=== PATIENT | female | born 1955 | race Caucasian/White ===

== ENCOUNTER → 2017-02-01 | Outpatient (REF) | payer MEDICARE ==
[~2017-02-01] MED LIST: /CELE20CA PO; /CLON1TA PO; /DULO30CA; /DULO30CA OR; /DULO30CA PO; /ESOM40CA PO; /METH500TA PO; ACET50TA PO; ALEV220C2 PO; AMAR1TAB PO; APPLTAB PO; ASPI81TA85 PO; ATEN50TA2 PO; ATIV0.5T3 PO; ATIV1TAB7 PO; AVEL1TAB3 PO; BABY81CH PO; BACIDCA PO; BEN1.4DI TOP; BISO5TAB54 PO; BOUDPST TOP; CALCTAB28 PO; CINN500C9 PO; CIPR500T89 PO; CLINDAMYACIN; CLINDAMYCIN PO; CLON1PA TD; CLOT10TR PO; CYMB60CA3 PO; CYMBALTA PO; DICL75TA PO; DIPH50CA PO; DULO1CAP3 PO; DULO30CA PO; FERR1TAB8 PO; FLAG500T PO; FLEX10TA2 PO; FLEXERIL PO; FURO40TA2; GABA100C PO; GABA300C2 PO; GEMF600T PO; GEMFPOW3 PO; GLIP5TAB8 PO; HYDR-3363 PO; IBUP200C PO; IRON325T3 PO; LASI40TA PO; LEVO25TA5 PO; LIDO1OIN2 TOP; LODINE PO; LORA1TAB; LORA1TAB PO; LORAZEPAM OR; LYRI150C PO; LYRI75CA PO; MACR100C43 PO; MAGN30TA2 PO; MELO7.5T7 PO; MELOPOW PO; MELOXICAM; MESA24CASA PO; METF500T PO; METF500T4 PO; METR500T10 PO; MORP15TA2 PO; MSIR30TA PO; MSM500CA PO; NEUR600T; NEUR600T OR; NEUR600T PO; NEUR800T OR; OMEG12003 PO; OMEP40CA2 PO; OSTETAB3 PO; OXYC10TA12; OXYC10TA12 OR; OXYC40TA19 OR; OXYC80TA14; OXYC80TA14 OR; OXYC80TA14 PO; PENT500C4 PO; PERC5TAB8 PO; PERC7.5T8 OR; PERCOCET PO; PRED10TA2 PO; PRIL20CA; PRIL20CA PO; ROXICET; SEROQUEL PO; SKEL800T97 PO; TIZA2TAB3 PO; TIZA4CAP3 PO; TRAM50TA2 PO; TRAZ-136 PO; TRAZ100T2 PO; VENTAER; VENTAER INH; VITA250L PO; VOLT1GEL2 TD; [UNRECOGNIZED DRUG - CODE] MT; [UNRECOGNIZED DRUG - OTHER]; [UNRECOGNIZED DRUG - OTHER]; [UNRECOGNIZED DRUG - OTHER] PO; monistat TD; roxicet PO
[2017-02-01 18:12] LABS: ALBUMIN 4.2 GM/DL (3.2-5.2); ALBUMIN/GLOBULIN RATIO 1.14 (1.00-1.93); BILIRUBIN,TOTAL 0.6 MG/DL (0.2-1.0); CALCIUM LEVEL 10.1 MG/DL (8.5-10.1); CREATININE FOR GFR 1.33 MG/DL (0.55-1.02); GLOMERULAR FILTRATION RATE 43.5 (>51); POTASSIUM SERUM 5.1 MEQ/L (3.5-5.1); TOTAL PROTEIN 7.9 GM/DL (6.4-8.2)
[2017-02-01 19:47] LABS: BASO % 0.4 % (0.0-1.0); EOS # 0.1 K/mm3 (0.0-0.50); EOS % 0.8 % (0.0-3.0); LARGE UNSTAINED CELL # 0.3 K/mm3 (0.0-0.4); LARGE UNSTAINED CELL % 2.8 % (0.0-4.0); LYMPH # 2.6 K/mm3 (1.5-4.5); LYMPH % 28.8 % (24.0-44.0); MEAN CORPUSCULAR HEMOGLOBIN 30.8 pg (27.0-33.0); MEAN CORPUSCULAR HGB CONC 33.4 g/dl (32.0-36.5); MEAN CORPUSCULAR VOLUME 92.1 fl (80.0-96.0); MONO # 0.5 K/mm3 (0.0-0.8); MONO % 5.4 % (0.0-5.0); NEUTROPHILS # 5.6 K/mm3 (1.8-7.7); NEUTROPHILS % 61.7 % (36.0-66.0); PLATELET COUNT, AUTOMATED 508 k/mm3 (150-450); RED CELL DISTRIBUTION WIDTH 13.2 % (11.5-14.5)
== END ==
LOC: M SFHCCLAY 13:09
PROVIDERS: ATTEND Family Medicine
DX: E11.9 Type 2 diabetes mellitus without complications (principal); D64.9 Anemia, unspecified; E78.5 Hyperlipidemia, unspecified; E03.9 Hypothyroidism, unspecified
CPT/HCPCS: 36415; 80053; 80061; 83036; 84443; 85025; G0463

== ENCOUNTER → 2017-06-09 | Outpatient (REF) | payer MEDICARE, OTHER ==
[2017-06-09 18:45] LABS: BASO % 0.5 % (0.0-1.0); EOS # 0.1 10^3/uL (0.0-0.50); EOS % 0.8 % (0.0-3.0); IMMATURE GRANULOCYTE % 0.2 % (0-0); LYMPH # 2.2 10^3/uL (1.5-4.5); LYMPH % 25.1 % (24.0-44.0); MEAN CORPUSCULAR HEMOGLOBIN 29.5 pg (27.0-33.0); MEAN CORPUSCULAR HGB CONC 32.4 g/dl (32.0-36.5); MEAN CORPUSCULAR VOLUME 91.1 fl (80.0-96.0); MONO # 0.6 10^3/uL (0.0-0.8); MONO % 6.7 % (0.0-5.0); NEUTROPHILS # 5.8 10^3/uL (1.8-7.7); NEUTROPHILS % 66.7 % (36.0-66.0); PLATELET COUNT, AUTOMATED 487 10^3/uL (150-450); RED CELL DISTRIBUTION WIDTH 13.4 % (11.5-14.5); WHITE BLOOD COUNT 8.7 10^3/uL (4.0-10.0)
[2017-06-09 18:50] LABS: ALBUMIN/GLOBULIN RATIO 1.18 (1.00-1.93); BILIRUBIN,TOTAL 0.3 MG/DL (0.2-1.0); CALCIUM LEVEL 9.6 MG/DL (8.8-10.2); CREATININE FOR GFR 1.32 MG/DL (0.55-1.02); FREE T4 0.92 NG/DL (0.76-1.46); GLOMERULAR FILTRATION RATE 43.7 (>45); POTASSIUM SERUM 4.1 MEQ/L (3.5-5.1); TOTAL PROTEIN 7.4 GM/DL (6.4-8.2)
== END ==
LOC: M SFHCCLAY 12:02
PROVIDERS: ATTEND Family Medicine
DX: K52.9 Noninfective gastroenteritis and colitis, unspecified (principal); E11.9 Type 2 diabetes mellitus without complications; E03.9 Hypothyroidism, unspecified

== ENCOUNTER → 2018-04-04 | Outpatient (REF) | payer MEDICARE, OTHER ==
[2018-04-04 17:03] LABS: BASO # 0.1 10^3/uL (0.0-0.2); BASO % 0.6 % (0.0-1.0); EOS # 0.1 10^3/uL (0.0-0.50); EOS % 1.4 % (0.0-3.0); HEMATOCRIT 37.4 % (36.0-47.0); HEMOGLOBIN 11.9 g/dl (12.0-15.5); IMMATURE GRANULOCYTE % 0.5 % (0-3.0); LYMPH # 1.8 10^3/uL (1.5-4.5); MEAN CORPUSCULAR HEMOGLOBIN 29.9 pg (27.0-33.0); MEAN CORPUSCULAR HGB CONC 31.8 g/dl (32.0-36.5); MONO # 0.7 10^3/uL (0.0-0.8); MONO % 8.1 % (0.0-5.0); NEUTROPHILS # 5.9 10^3/uL (1.8-7.7); NEUTROPHILS % 68.4 % (36.0-66.0); PLATELET COUNT, AUTOMATED 502 10^3/uL (150-450); RED BLOOD COUNT 3.98 10^6/uL (4.00-5.40); RED CELL DISTRIBUTION WIDTH 13.6 % (11.5-14.5); WHITE BLOOD COUNT 8.7 10^3/uL (4.0-10.0)
[2018-04-04 17:40] LABS: ESTIMATED AVERAGE GLUCOSE 146 MG/DL (60-110); HEMOGLOBIN A1c 6.7 %
[2018-04-04 17:51] LABS: ALBUMIN/GLOBULIN RATIO 1.05 (1.00-1.93); ALKALINE PHOSPHATASE 175 U/L (45-117); ALT/SGPT 79 U/L (12-78); ANION GAP 12 MEQ/L (8-16); AST/SGOT 69 U/L (7-37); BILIRUBIN,TOTAL 0.4 MG/DL (0.2-1.0); BLOOD UREA NITROGEN 25 MG/DL (7-18); CALCIUM LEVEL 9.9 MG/DL (8.8-10.2); CARBON DIOXIDE LEVEL 22 MEQ/L (21-32); CHLORIDE LEVEL 103 MEQ/L (98-107); CHOLESTEROL LEVEL 194 MG/DL (<200); CREATININE FOR GFR 1.58 MG/DL (0.55-1.30); FREE T4 0.83 NG/DL (0.76-1.46); GLOMERULAR FILTRATION RATE 35.4 (>45); GLUCOSE, FASTING 92 MG/DL (70-100); HDL CHOLESTEROL 40 MG/DL (>40); LDL CHOLESTEROL 127 MG/DL (<100); NON-HDL-C 154 MG/DL; POTASSIUM SERUM 4.7 MEQ/L (3.5-5.1); SODIUM LEVEL 137 MEQ/L (136-145); TOTAL PROTEIN 7.8 GM/DL (6.4-8.2); TRIGLYCERIDES LEVEL 137 MG/DL (<150)
== END ==
LOC: M SFHCCLAY 12:08
DX: D64.9 Anemia, unspecified (principal); E03.9 Hypothyroidism, unspecified; E78.2 Mixed hyperlipidemia; E11.9 Type 2 diabetes mellitus without complications
CPT/HCPCS: 84443

== ENCOUNTER → 2018-10-19 | Outpatient (REF) | payer MEDICARE ==
[~2018-10-19] MED LIST changes: -/CELE20CA PO; -/CLON1TA PO; -/DULO30CA; -/DULO30CA OR; -/DULO30CA PO; -/ESOM40CA PO; -/METH500TA PO; -ACET50TA PO; +CELE1CAP4 PO; +CLON-412 PO; -CLON1PA TD; +CLON1PAT TD; +CYMB1CAP5; +CYMB1CAP5 OR; +CYMB1CAP5 PO; -DULO30CA PO; +DULO30CA9 PO; +GEMF600T5 PO; +MAPA500T17 PO; +METH1TAB40 PO; +NEXI1CAP3 PO; +OCUVTA PO; +OXYC1TAB23 PO; -PERCOCET PO; +TIZA4CAP PO; -TIZA4CAP3 PO; -TRAZ-136 PO; +TRAZ-163 PO; -[UNRECOGNIZED DRUG - OTHER] PO
[2018-10-19 17:04] LABS: ALBUMIN 3.8 GM/DL (3.2-5.2); BILIRUBIN,TOTAL 0.3 MG/DL (0.2-1.0); CALCIUM LEVEL 9.2 MG/DL (8.8-10.2); CHOLESTEROL RISK RATIO 4.23 (<5); CREATININE FOR GFR 1.02 MG/DL (0.55-1.30); FREE T4 0.89 NG/DL (0.76-1.46); GLOMERULAR FILTRATION RATE 58.7 (>45); POTASSIUM SERUM 4.7 MEQ/L (3.5-5.1); THYROID STIMULATING HORMONE 2.24 uIU/ML (0.358-3.740); TOTAL PROTEIN 7.5 GM/DL (6.4-8.2)
[2018-10-19 17:08] LABS: BASO # 0.1 10^3/uL (0.0-0.2); BASO % 0.8 % (0.0-1.0); EOS # 0.1 10^3/uL (0.0-0.50); HEMATOCRIT 40.6 % (36.0-47.0); LYMPH # 2.3 10^3/uL (1.5-4.5); LYMPH % 23.8 % (24.0-44.0); MEAN CORPUSCULAR HEMOGLOBIN 29.7 pg (27.0-33.0); MEAN CORPUSCULAR VOLUME 92.7 fl (80.0-96.0); MONO # 0.5 10^3/uL (0.0-0.8); MONO % 5.1 % (0.0-5.0); NEUTROPHILS # 6.7 10^3/uL (1.8-7.7); PLATELET COUNT, AUTOMATED 468 10^3/uL (150-450); RED BLOOD COUNT 4.38 10^6/uL (4.00-5.40); WHITE BLOOD COUNT 9.7 10^3/uL (4.0-10.0)
[2018-10-19 17:14] LABS: HEMOGLOBIN A1c 8.1 %
== END ==
LOC: M SFHCCLAY 12:15
PROVIDERS: ATTEND Family Medicine
DX: J06.9 Acute upper respiratory infection, unspecified (principal); M15.9 Polyosteoarthritis, unspecified; E11.9 Type 2 diabetes mellitus without complications; E78.5 Hyperlipidemia, unspecified; E03.9 Hypothyroidism, unspecified
CPT/HCPCS: 36415; 80053; 80061; 83036; 84439; 84443; 84550; 85025; G0463

== ENCOUNTER → 2019-04-19 | Outpatient (CLI) | payer MEDICARE ==
[~2019-04-19] MED LIST changes: -DULO1CAP3 PO; +DULO1CAP6 PO; +METF-791 PO; -METF500T4 PO
[2019-04-19 13:48] LABS: CALCIUM LEVEL 9.6 MG/DL (8.8-10.2); CREATININE FOR GFR 1.12 MG/DL (0.55-1.30); GLOMERULAR FILTRATION RATE 52.5 (>45); POTASSIUM SERUM 4.5 MEQ/L (3.5-5.1)
== END ==
LOC: M LAB 12:48
PROVIDERS: ATTEND Family Medicine
DX: E11.9 Type 2 diabetes mellitus without complications (principal)

== ENCOUNTER → 2019-04-20 | Outpatient (CLI) | payer MEDICARE, OTHER ==
[~2019-04-20] MED LIST changes: +GASTROGRAFIN SOLUTION 30ML (Q9963) As Ordered ONE; +ISOVUE-370 76% 100ML VIAL (Q9967) As Ordered ONE
--- NOTE | 2019-04-20 16:29 | REP ---
REASON: Abdominal pain. COMPARISON: Multiple, the latest 11/05/2015. CONTRAST: 100 mL Isovue-370. The lung bases are clear and unchanged. The precontrast enhanced portion of the examination shows the hepatic and splenic densities to be within normal limits. There are surgical clips seen in the gallbladder fossa from previous cholecystectomy. There are no nephroliths. The contrast enhanced portion of the examination shows the liver, spleen, pancreas, adrenal glands and kidneys to be within normal limits with the abdominal aorta and paraaortic regions within normal limits. The bowel loops and the mesenteries are within normal limits. The bowel loops and their mesenteries are within normal limits. There are a few scattered colonic diverticula status quo. There is no free fluid or free air. CT PELVIS: The bowel loops and their mesenteries are within normal limits. There is no evidence of a mass or adenopathy. There is no free fluid or free air. Bone window technique throughout the examination shows the osseous structures to be stable and intact. Spinal and sacroiliac joint degenerative changes are noted status quo. IMPRESSION: No acute intraabdominal or intrapelvic disease. No significant change compared to the prior exam. Findings as described above. Electronically Signed by Patrick Webb DO 04/20/2019 04:44 P
== END ==
LOC: M RAD 11:22
PROVIDERS: ATTEND Family Medicine
DX: R10.9 Unspecified abdominal pain (principal)
CPT/HCPCS: 74178; Q9963; Q9967

== ENCOUNTER → 2019-05-26 | Outpatient (REF) | payer MEDICARE ==
[~2019-05-26] MED LIST changes: -GASTROGRAFIN SOLUTION 30ML (Q9963) As Ordered ONE; -ISOVUE-370 76% 100ML VIAL (Q9967) As Ordered ONE; -OMEP40CA2 PO; +OMEP40CA97 PO
[2019-05-26 16:45] LABS: BASO # 0.1 10^3/uL (0.0-0.2); BASO % 0.6 % (0.0-1.0); EOS # 0.1 10^3/uL (0.0-0.5); EOS % 1.2 % (0.0-3.0); HEMATOCRIT 39.9 % (36.0-47.0); HEMOGLOBIN 12.6 g/dl (12.0-15.5); LYMPH # 3.1 10^3/uL (1.5-5.0); LYMPH % 27.4 % (24.0-44.0); MEAN CORPUSCULAR HEMOGLOBIN 28.9 pg (27.0-33.0); MEAN CORPUSCULAR HGB CONC 31.6 g/dl (32.0-36.5); MEAN CORPUSCULAR VOLUME 91.5 fl (80.0-96.0); MONO # 0.7 10^3/uL (0.0-0.8); MONO % 5.9 % (0.0-5.0); NEUTROPHILS # 7.3 10^3/uL (1.5-8.5); NEUTROPHILS % 64.5 % (36.0-66.0); PLATELET COUNT, AUTOMATED 493 10^3/uL (150-450); RED BLOOD COUNT 4.36 10^6/uL (4.00-5.40); WHITE BLOOD COUNT 11.3 10^3/uL (4.0-10.0)
[2019-05-26 16:56] LABS: ALBUMIN 4.1 GM/DL (3.2-5.2); BILIRUBIN,TOTAL 0.5 MG/DL (0.2-1.0); CALCIUM LEVEL 9.9 MG/DL (8.8-10.2); CHOLESTEROL RISK RATIO 5.219 (<5); CREATININE FOR GFR 1.14 MG/DL (0.55-1.30); FREE T4 0.94 NG/DL (0.76-1.46); GLOMERULAR FILTRATION RATE 51.4 (>45); POTASSIUM SERUM 4.6 MEQ/L (3.5-5.1); THYROID STIMULATING HORMONE 4.86 uIU/ML (0.358-3.740); TOTAL PROTEIN 8.1 GM/DL (6.4-8.2)
[2019-05-26 16:58] LABS: HEMOGLOBIN A1c 8.5 %
== END ==
LOC: M SFHCCLAY 12:05
PROVIDERS: ATTEND Family Medicine
DX: E11.9 Type 2 diabetes mellitus without complications (principal); E78.5 Hyperlipidemia, unspecified; E03.9 Hypothyroidism, unspecified; M15.9 Polyosteoarthritis, unspecified
CPT/HCPCS: 36415; 80053; 80061; 83036; 84439; 84443; 85025; G0463

== ENCOUNTER → 2020-01-10 | Outpatient (REF) | payer MEDICARE ==
[~2020-01-10] MED LIST changes: -METF-791 PO; +METF-838 PO; -TRAZ-163 PO; +TRAZ-257 PO
[2020-01-11 11:42] LABS: BASO # 0.1 10^3/uL (0.0-0.2); BASO % 0.5 % (0.0-1.0); EOS # 0.1 10^3/uL (0.0-0.5); EOS % 0.8 % (0.0-3.0); HEMOGLOBIN 13.5 g/dl (12.0-15.5); LYMPH # 3.4 10^3/uL (1.5-5.0); LYMPH % 33.4 % (24.0-44.0); MEAN CORPUSCULAR HEMOGLOBIN 29.1 pg (27.0-33.0); MEAN CORPUSCULAR HGB CONC 31.4 g/dl (32.0-36.5); MEAN CORPUSCULAR VOLUME 92.7 fl (80.0-96.0); MONO # 0.6 10^3/uL (0.0-0.8); MONO % 5.6 % (0.0-5.0); NEUTROPHILS # 6.1 10^3/uL (1.5-8.5); NEUTROPHILS % 59.3 % (36.0-66.0); PLATELET COUNT, AUTOMATED 512 10^3/uL (150-450); RED BLOOD COUNT 4.64 10^6/uL (4.00-5.40); WHITE BLOOD COUNT 10.2 10^3/uL (4.0-10.0)
[2020-01-11 12:08] LABS: HEMOGLOBIN A1c 7.6 %
[2020-01-11 12:48] LABS: BILIRUBIN,TOTAL 0.4 MG/DL (0.2-1.0); CALCIUM LEVEL 10.5 MG/DL (8.8-10.2); CHOLESTEROL RISK RATIO 4.794 (<5); CREATININE FOR GFR 1.18 MG/DL (0.55-1.30); FREE T4 1.1 NG/DL (0.76-1.46); GLOMERULAR FILTRATION RATE 49.4 (>45); POTASSIUM SERUM 6.2 MEQ/L (3.5-5.1); THYROID STIMULATING HORMONE 1.93 uIU/ML (0.358-3.740); TOTAL PROTEIN 7.8 GM/DL (6.4-8.2)
== END ==
LOC: M SFHCCLAY 14:31
PROVIDERS: ATTEND Family Medicine
DX: G62.9 Polyneuropathy, unspecified (principal); E78.5 Hyperlipidemia, unspecified; E11.9 Type 2 diabetes mellitus without complications; E03.9 Hypothyroidism, unspecified

== ENCOUNTER → 2020-01-11 | Outpatient (CLI) | payer MEDICARE ==
[2020-01-11 16:24] LABS: CREATININE FOR GFR 1.28 MG/DL (0.55-1.30); POTASSIUM SERUM 4.8 MEQ/L (3.5-5.1)
== END ==
LOC: M WUC 14:48
PROVIDERS: ATTEND Family Medicine
DX: E87.5 Hyperkalemia (principal)

== ENCOUNTER → 2020-06-18 | Outpatient (REF) | payer MEDICARE ==
[2020-06-18 17:48] LABS: HEMOGLOBIN A1c 7.6 %
[2020-06-18 18:47] LABS: CREATININE, URINE 68.1 MG/DL; MALB URINE SIEMENS 13.6 MG/L; MAU/CREAT RATIO 19.9 MCG/MG (0.0-30.0)
[2020-06-18 18:51] LABS: CALCIUM LEVEL 9.5 MG/DL (8.8-10.2); CREATININE FOR GFR 1.1 MG/DL (0.55-1.30); FREE T4 0.94 NG/DL (0.76-1.46); GLOMERULAR FILTRATION RATE 53.4 (>45); POTASSIUM SERUM 4.6 MEQ/L (3.5-5.1); THYROID STIMULATING HORMONE 3.59 uIU/ML (0.358-3.740)
== END ==
LOC: M SFHCCLAY 12:00
PROVIDERS: ATTEND Family Medicine
DX: E03.9 Hypothyroidism, unspecified (principal); E11.9 Type 2 diabetes mellitus without complications

== ENCOUNTER → 2020-10-22 | Outpatient (REF) | payer MEDICARE ==
[2020-10-22 18:08] LABS: BASO # 0.1 10^3/uL (0.0-0.2); BASO % 0.6 % (0.0-1.0); EOS # 0.2 10^3/uL (0.0-0.5); EOS % 1.7 % (0.0-3.0); HEMATOCRIT 40.9 % (36.0-47.0); LYMPH # 3.2 10^3/uL (1.5-5.0); LYMPH % 31.4 % (24.0-44.0); MEAN CORPUSCULAR HEMOGLOBIN 29.3 pg (27.0-33.0); MEAN CORPUSCULAR HGB CONC 31.8 g/dl (32.0-36.5); MEAN CORPUSCULAR VOLUME 92.3 fl (80.0-96.0); MONO # 0.7 10^3/uL (0.0-0.8); MONO % 6.3 % (2.0-8.0); NEUTROPHILS # 6.2 10^3/uL (1.5-8.5); NEUTROPHILS % 59.7 % (36.0-66.0); PLATELET COUNT, AUTOMATED 508 10^3/uL (150-450); RED BLOOD COUNT 4.43 10^6/uL (4.00-5.40); WHITE BLOOD COUNT 10.3 10^3/uL (4.0-10.0)
[2020-10-22 18:29] LABS: ALBUMIN 4.4 GM/DL (3.2-5.2); ALT/SGPT 36 U/L (12-78); BILIRUBIN,TOTAL 0.4 MG/DL (0.2-1.0); BLOOD UREA NITROGEN 19 MG/DL (7-18); C REACTIVE PROTEIN QUANTITATIV 0.97 MG/DL (0.00-0.30); CALCIUM LEVEL 10.2 MG/DL (8.8-10.2); CARBON DIOXIDE LEVEL 31 MEQ/L (21-32); CHLORIDE LEVEL 102 MEQ/L (98-107); CREATININE FOR GFR 1.16 MG/DL (0.55-1.30); GLOMERULAR FILTRATION RATE 50.2 (>45); GLUCOSE, FASTING 155 MG/DL (70-100); POTASSIUM SERUM 4.8 MEQ/L (3.5-5.1); RHEUMATOID FACTOR QUANT < 10.0 IU/ML (<15.0); SODIUM LEVEL 138 MEQ/L (136-145)
[2020-10-22 18:41] LABS: ERYTHROCYTE SEDIMENTATION RATE 67 mm/hr (0-30)
[2020-10-22 20:12] LABS: HEMOGLOBIN A1c 7.5 %
[2020-10-25 00:07] LABS: ANA (HEP2) Positive (.); CARDIOLIPIN IGA ANTIBODY <9 APL U/mL (0-11); CARDIOLIPIN IGG ANTIBODY <9 GPL U/mL (0-14); CARDIOLIPIN IGM ANTIBODY 66 MPL U/mL (0-12); CYCLIC CITRULLINATED PEPTIDE 30 units (0-19); Lyme Disease IgG/IgM Antibodie <0.91 ISR (0.00-0.90); Lyme Disease IgM Ab Quantitati <0.80 index (0.00-0.79)
== END ==
LOC: M SFHCCLAY 11:46
PROVIDERS: ATTEND Family Medicine
DX: M25.50 Pain in unspecified joint (principal); E11.9 Type 2 diabetes mellitus without complications

== ENCOUNTER 2020-10-27 11:01 | Emergency (ER) | payer MEDICARE ==
[~2020-10-27] VITALS: Ht 160 cm; Wt 102.4 kg
[2020-10-27] MEDS ORDERED: HYDR-3713 PO (11:42)
[2020-10-27] MEDS ORDERED: ESOM40CA35 PO (11:42)
[2020-10-27 11:43] LABS: HEMATOCRIT 38.7 % (36.0-47.0); HEMOGLOBIN 12.4 g/dl (12.0-15.5); MEAN CORPUSCULAR HEMOGLOBIN 28.8 pg (27.0-33.0); PLATELET COUNT, AUTOMATED 446 10^3/uL (150-450); WHITE BLOOD COUNT 13.3 10^3/uL (4.0-10.0)
[2020-10-27 12:08] LABS: CALCIUM LEVEL 9.4 MG/DL (8.8-10.2); CREATININE FOR GFR 1.12 MG/DL (0.55-1.30); GLOMERULAR FILTRATION RATE 52.3 (>45); POTASSIUM SERUM 4.1 MEQ/L (3.5-5.1)
[2020-10-27] MEDS ORDERED: BACTRIM 160MG/800MG DS TAB PO ONE (13:25)
[2020-10-27] MEDS ORDERED: PERCOCET 5MG/325MG TAB PO ONE (13:25)
[2020-10-27] MEDS ORDERED: PYRI1TAB5 PO (14:04)
[2020-10-27] MEDS ORDERED: BACT800T5 PO (14:04)
[2020-10-27 14:23] VITALS: BP 119/67
--- NOTE | 2020-10-27 16:24 | ECGEPIP ---
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
== END 2020-10-27 14:25 | disposition home or self-care (01) ==
LOC: M ED 11:01
DX: N39.0 Urinary tract infection, site not specified (principal); I44.0 Atrioventricular block, first degree; E03.9 Hypothyroidism, unspecified; G89.29 Other chronic pain; M54.5 Low back pain; K50.90 Crohn's disease, unspecified, without complications; M79.7 Fibromyalgia; Z88.0 Allergy status to penicillin; Z79.899 Other long term (current) drug therapy

== ENCOUNTER 2021-01-30 11:32 | Emergency (ER) | payer MEDICARE, OTHER ==
[~2021-01-30] VITALS: Ht 162.6 cm; Wt 100.1 kg
[~2021-01-30 11:32] MED LIST changes: +BACT800T5 PO; +ESOM40CA35 PO; +HYDR-3713 PO; +OMEP40CA4 PO; -OMEP40CA97 PO; +PYRI1TAB5 PO
[2021-01-30 13:24] LABS: BASO % 0.3 % (0.0-1.0); EOS % 0.1 % (0.0-3.0); HEMOGLOBIN 12.9 g/dl (12.0-15.5); LYMPH # 1.1 10^3/uL (1.5-5.0); LYMPH % 7.4 % (24.0-44.0); MEAN CORPUSCULAR HEMOGLOBIN 28.9 pg (27.0-33.0); MEAN CORPUSCULAR HGB CONC 32.3 g/dl (32.0-36.5); MEAN CORPUSCULAR VOLUME 89.7 fl (80.0-96.0); MONO # 0.4 10^3/uL (0.0-0.8); MONO % 2.6 % (2.0-8.0); NEUTROPHILS # 13.7 10^3/uL (1.5-8.5); NEUTROPHILS % 89.1 % (36.0-66.0); PLATELET COUNT, AUTOMATED 493 10^3/uL (150-450); RED BLOOD COUNT 4.46 10^6/uL (4.00-5.40); WHITE BLOOD COUNT 15.4 10^3/uL (4.0-10.0)
[2021-01-30 13:47] LABS: ALT/SGPT 46 U/L (12-78); BILIRUBIN,DIRECT < 0.1 MG/DL (0.0-0.2); BILIRUBIN,TOTAL 0.4 MG/DL (0.2-1.0); LIPASE 172 U/L (73-393); TOTAL PROTEIN 8.7 GM/DL (6.4-8.2)
[2021-01-30] MEDS ORDERED: ISOVUE-370 76% 100ML VIAL As Ordered ONE (14:30)
[2021-01-30] MEDS ORDERED: ONDANSETRON 4MG/2ML VIAL IV ONE (14:30)
[2021-01-30] MEDS ORDERED: NS 1,000 ML IV ONE (14:30)
--- NOTE | 2021-01-30 14:51 | REP ---
INDICATION: LUQ, LLQ pain, hx of chrons disease, nausea. COMPARISON: Comparison CT study abdomen pelvis April 20, 2019.. TECHNIQUE: Helical scanning was acquired and 4 mm axial images are re-formatted. Coronal and sagittal MPR images were generated and reviewed. The contrast enhancement dose is 100 mL of intravenous Isovue 370. 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 Normal bowel gas pattern. Clips in right upper quadrant. Axial CT images demonstrate clear lung bases. There is mild diffuse fatty infiltration of the liver. No focal liver lesion is seen. Gallbladder is surgically absent. No biliary ductal dilation is observed. There are 2 small accessory splenules. Several small cysts are seen in the spleen. These are essentially unchanged. There is a granulomatous calcification inferiorly in the spleen as well. No pancreatic abnormality is seen. Normal adrenal glands are observed bilaterally. Kidneys enhance symmetrically and are morphologically intact. No calculus or hydronephrosis is seen. There is left colonic diverticulosis affecting the colon distal to the distal transverse segment. There is no CT evidence of diverticulitis. The diverticulosis is most pronounced in the sigmoid colon region. The appendix is surgically absent. There is a small cyst in the left ovary measuring 1.3 cm in diameter. This is unchanged. The uterus is surgically absent. Urinary bladder is empty but unremarkable. No abdominal wall defect or bony destructive lesion is appreciated. IMPRESSION: Moderate left colonic diverticulosis. Status post cholecystectomy, appendectomy, and hysterectomy. Fatty infiltration of the liver. No acute abdominal or pelvic abnormality. <Electronically signed by Hermilo Espinoza > 01/30/21 [id number]
[2021-01-30 15:04] LABS: HEMOGLOBIN A1c 8.2 %
[2021-01-30 15:25] VITALS: BP 132/98
[2021-01-30] MEDS ORDERED: NORCO, ANEXSIA 5/325MG TABLET (HYDROcodone/ACETAMINOPHEN) PO ONE (16:00)
--- NOTE | 2021-01-30 16:55 | ECGEPIP ---
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 Order Number: [id number] Reading MD: Erwin Lepe Measurements Intervals [place] Rate: 68 P: 50 [place]: 174 QRS: 49 QRSD: 90 T: 47 QT: 392 QTc: 416 Interpretive Statements Normal sinus rhythm Nonspecific ST-T wave abnormalities Delayed anterior R wave progression Similar to tracing done 10-27-20 Electronically Signed on 01-30-2021 16:55:28 EDT by Erwin Lepe
== END 2021-01-30 17:00 | disposition home or self-care (01) ==
LOC: M ED 11:32
DX: E86.0 Dehydration (principal); K57.30 Diverticulosis of large intestine without perforation or abscess without bleeding; R19.7 Diarrhea, unspecified; R11.0 Nausea; K50.90 Crohn's disease, unspecified, without complications; K76.0 Fatty (change of) liver, not elsewhere classified; E11.9 Type 2 diabetes mellitus without complications; K21.9 Gastro-esophageal reflux disease without esophagitis; Z87.19 Personal history of other diseases of the digestive system; Z87.440 Personal history of urinary (tract) infections; Z90.49 Acquired absence of other specified parts of digestive tract; Z90.710 Acquired absence of both cervix and uterus; Z88.0 Allergy status to penicillin; Z88.1 Allergy status to other antibiotic agents; Z79.899 Other long term (current) drug therapy
CPT/HCPCS: 36415; 74177; 80047; 80076; 81001; 83036; 83690; 85025; 87086; 93005; 96374; 99284; J2405; Q9967

== ENCOUNTER → 2021-01-31 | Outpatient (REF) | payer MEDICARE | LOC: M LAB REF 16:59 | PROVIDERS: ATTEND Physician Assistant Medical | DX: R19.7 Diarrhea, unspecified (principal) ==

== ENCOUNTER → 2021-02-05 | Outpatient (CLI) | payer MEDICARE ==
[2021-02-05 16:06] LABS: BLOOD UREA NITROGEN 19 MG/DL (7-18); CALCIUM LEVEL 9.2 MG/DL (8.8-10.2); CARBON DIOXIDE LEVEL 27 MEQ/L (21-32); CHLORIDE LEVEL 102 MEQ/L (98-107); CREATININE FOR GFR 0.96 MG/DL (0.55-1.30); GLOMERULAR FILTRATION RATE > 60.0 (>45); GLUCOSE, FASTING 182 MG/DL (70-100); POTASSIUM SERUM 4.9 MEQ/L (3.5-5.1); SODIUM LEVEL 135 MEQ/L (136-145)
== END ==
LOC: M LAB 12:16
PROVIDERS: ATTEND Family Medicine
DX: E11.9 Type 2 diabetes mellitus without complications (principal)

== ENCOUNTER 2021-04-04 19:24 | Inpatient (IN) | payer MEDICARE, OTHER ==
[~2021-04-04] VITALS: Ht 157.5 cm; Wt 120.0 kg
[2021-04-04 21:09] LABS: BASO # 0.1 10^3/uL (0.0-0.2); BASO % 0.6 % (0.0-1.0); EOS # 0.2 10^3/uL (0.0-0.5); EOS % 2.2 % (0.0-3.0); HEMATOCRIT 33.9 % (36.0-47.0); HEMOGLOBIN 10.9 g/dl (12.0-15.5); LYMPH # 2.9 10^3/uL (1.5-5.0); LYMPH % 30.2 % (24.0-44.0); MEAN CORPUSCULAR HEMOGLOBIN 28.7 pg (27.0-33.0); MEAN CORPUSCULAR HGB CONC 32.2 g/dl (32.0-36.5); MEAN CORPUSCULAR VOLUME 89.2 fl (80.0-96.0); MONO # 0.8 10^3/uL (0.0-0.8); MONO % 8.3 % (2.0-8.0); NEUTROPHILS # 5.7 10^3/uL (1.5-8.5); NEUTROPHILS % 58.5 % (36.0-66.0); PLATELET COUNT, AUTOMATED 518 10^3/uL (150-450); WHITE BLOOD COUNT 9.7 10^3/uL (4.0-10.0)
[2021-04-04 21:32] LABS: ALBUMIN 3.1 GM/DL (3.2-5.2); ALT/SGPT 44 U/L (12-78); BILIRUBIN,TOTAL 0.3 MG/DL (0.2-1.0); BLOOD UREA NITROGEN 28 MG/DL (7-18); CARBON DIOXIDE LEVEL 24 MEQ/L (21-32); CHLORIDE LEVEL 103 MEQ/L (98-107); CK-MB VALUE MASS 2.5 NG/ML (<3.6); CPK CREATINE PHOSPHOKINASE 141 U/L (26-192); CREATININE FOR GFR 1.36 MG/DL (0.55-1.30); GLOMERULAR FILTRATION RATE 41.7 (>45); GLUCOSE, FASTING 108 MG/DL (70-100); LIPASE 300 U/L (73-393); MAGNESIUM LEVEL 1.6 MG/DL (1.8-2.4); MB/CK RELATIVE INDEX 1.77 (< OR =4); POTASSIUM SERUM 3.9 MEQ/L (3.5-5.1); SODIUM LEVEL 136 MEQ/L (136-145); TROPONIN I < 0.02 NG/ML (< 0.10)
--- NOTE | 2021-04-04 21:36 | REPVR ---
PROCEDURE INFORMATION: Exam: XR Chest Exam date and time: 04/04/2021 9:10 PM Age: 66 years old Clinical indication: Shortness of breath; Additional info: Abdominal pain, and cough TECHNIQUE: Imaging protocol: XR of the chest. Views: 1 view. COMPARISON: CR Chest, 2 view PA, Lat 06/06/2014 3:33 PM FINDINGS: Lungs: Unremarkable. No consolidation. Pleural spaces: Unremarkable. No pleural effusion. No pneumothorax. Heart/Mediastinum: Unremarkable. No cardiomegaly. Bones/joints: Unremarkable. IMPRESSION: No acute findings. Electronically signed by: Hang Velasquez On 04/04/2021 21:36:17 PM
[2021-04-04] MEDS ORDERED: LACTULOSE 20 GM/30 ML SYRUP UD PO ONE (22:40)
[2021-04-04] MEDS ORDERED: NS 1,000 ML IV ONE (22:40)
[2021-04-04 22:59] LABS: ETHYL ALCOHOL (ETHANOL) 0.004 % (0.000-0.010)
[2021-04-04] MEDS ORDERED: ACETAMINOPHEN TAB 650MG DOSE (2X325MG) PO PRN (23:25)
[2021-04-04] MEDS ORDERED: DEXTROSE 50% 50 ML SYRINGE IV PRN (23:25)
[2021-04-04] MEDS ORDERED: GLUCOSE 4GM CHEW TABLET PO PRN (23:25)
[2021-04-04] MEDS ORDERED: GLUCAGON INJ 1MG VIAL SC PRN (23:25)
--- NOTE | 2021-04-04 23:27 | HPEPDOC ---
[facility] Medical History & Physical Date of Admission Apr 04, 2021 Date of Service: Apr 04, 2021 Primary Care Physician: BLAKE MENDEZ DO Attending Physician: TASIA MERRILL MD History and Physical CHIEF COMPLAINT: [abdominal pain, ams for unknown duration] HISTORY OF PRESENT ILLNESS: [This is a 66 y/o female who at the time of my exam is alert however not oriented and not able to provide any reliable history. History is obtained via the chart and ED staff. Apparently, patient was brought in by her boyfriend for evaluation of her abdominal pain of unknown duration and her confusion. Patient tells me that she is having abdominal pain, however when asked to localize the pain, patient rubs her entire abdomen and chest. Labwork performed in the ED notable to ara with cr acutely elevated to 1.3 from 1 and hyperammonemia of 90.] PAST MEDICAL HISTORY: 1. [?Crohn's disease]. 2. [?Lupus]. 3. [Fatty liver 4. HLD 5. Depression/anxiety 6. DM2]. PAST SURGICAL HISTORY: 1. [Tonsillectomy and adenoidectomy]. 2. [Cholecystectomy]. 3. [Appendectomy 4. Hysterectomy 5. B/l carpal tunnel repair SOCIAL HISTORY: Unable to obtain d/t mentation FAMILY HISTORY: Unable to obtain d/t mentation ALLERGIES: Please see below. REVIEW OF SYSTEMS: Unable to obtain accurate ros d/t current mentation. HOME MEDICATIONS: Please see below. PHYSICAL EXAMINATION: VITAL SIGNS: Please see below. GENERAL APPEARANCE: [This is a 66 y/o female who is alert but not oriented. She answers questions nonsensically. Patient does not appear to be in any distress]. HEENT: [No mass or lesion. EOMI. No scleral icterus. Nares patent. Oral mucosa moist]. CARDIOVASCULAR: [Regular rate, rhythm. No murmurs, rubs, gallops]. LUNGS: [Good air flow b/l. No wheezing, rales, rhonchi]. ABDOMEN: [Soft, tender to RUQ, RLQ and epigastrium. Most tender to epigastrium]. MUSCULOSKELETAL: [No joint deformity]. EXTREMITIES: [No pedal edema appreciated. No overlying skin changes. Pulses intact]. NEUROLOGICAL: [Speech clear but nonsensical. Alert, oriented to self only. No focal deficits]. PSYCHIATRIC: [Patient is confused]. LABORATORY DATA: See below. IMAGING: [CXR: FINDINGS: Lungs: Unremarkable. No consolidation. Pleural spaces: Unremarkable. No pleural effusion. No pneumothorax. Heart/Mediastinum: Unremarkable. No cardiomegaly. Bones/joints: Unremarkable. IMPRESSION: No acute findings. CT Abd/pelvis: FINDINGS: LUNG BASES: Minimal atelectasis and/or pulmonary parenchymal scarring. VASCULAR: Visualized cardiac size is at the upper end of normal. No abdominoaortic aneurysm or retroperitoneal hematoma. There is calcific atherosclerosis. Vascular patency is not evaluated by this exam. PERITONEAL : No free air or free fluid. GI: No hiatal hernia. The stomach is not sufficiently distended to evaluate wall thickening. No asymmetric small-bowel distention to suggest a complete obstruction. Evaluation for bowel wall and fold thickening is limited on this study, secondary to lack of any contrast. No focal mesenteric inflammation is seen. No mesenteric lymphadenopathy by size criteria. Scattered fecal material and gas within portions of the colon and rectum. There is diverticulosis but no evidence of acute diverticulitis. The appendix is not visualized. No secondary inflammation is seen at the cecal apex. HEPATOBILIARY, PANCREAS, SPLEEN: Hepatic length is 19.3 cm. The gallbladder has been removed. No pancreatic inflammation. Spleen not enlarged. There is lobular contour along the medial margin of the spleen with a 2 cm hypodense lesion noted anterosuperiorly, difficult to further characterize but not significantly changed from the prior exam. Posterior splenic calcification again noted. ADRENALS, KIDNEYS, BLADDER, RETROPERITONEAL: Adrenals within normal limits. No hydronephrosis. Mild nonspecific perinephric stranding. No renal calculi. No ureteral calculi. No calculi within the urinary bladder. Several calcifications seen within the pelvis are felt likely to represent phleboliths. Mildly distended urinary bladder. No perivesical stranding. No bladder wall thickening. PELVIC: The uterus is not visualized. Slightly tubular cystic lesion noted along the left adnexa, measuring 3.7 by 1.5 cm is unchanged from the prior study and may represent an ovarian cyst, adnexal cyst or focal dilation of the flow being to. Consider confirmation non emergently by ultrasound as clinically appropriate, if not already done. MUSCULOSKELETAL: Small fat containing umbilical hernia. Small fat containing inguinal hernias. Degenerative changes of the spine and pelvis noted. Mild superior endplate compression fracture deformity at T12 is similar to the prior exam. IMPRESSION: No free-air, free-fluid or focal mesenteric inflammation. Nonspecific gastrointestinal findings.] MICROBIOLOGY: Please see below. ASSESSMENT: [66 y/o female with a pmh of fatty liver, dm2, depression/anxiety brought to ED by significant other for evaluation of abdominal pain, altered mental status. As of my exam, patient is acutely altered and unable to provide history. Patient is having active visual and auditory hallucinations as well as nonsensical speech and thought pattern. Labwork in ED notable for hyperammonemia of 90, and this seems to be the first incidence of hepatic encephalopathy per our chart. Patient is complaining of abdominal pain, however a chart review seems to show a history of chronic pain and several complaints of abdominal pain in the past, so this may be chronic for her. There is a questionable history of crohn's disease in the chart as it seems that patient was on mesalamine at one point, however i cannot find good documentation of this. ]. . PLAN: 1. 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 Will order procalcitonin, esr, crp - we should consider polypharmacy as causation at this time, as patients med list includes ativan, oxycodone, tramadol and pregabalin among others - will hold these home meds at this time - will begin lactulose qid and trend ammonia - continuous pulse ox and neurochecks for now d/t encephalopathy - admit to pcu for tx 2. ARA - most likely pre renal d/t reported abdominal pain and ams - ct abd pelvis not indicative of obstruction - ua and urine electrolytes ordered - will give ivf overnight - repeat kidney function in the am 3.DM2 - sliding scale insulin - hypoglycemic protocol 4. Essential HTN - continue atenolol 5. GERD - continue famotidine, protonix 6. Depression/anxiety - continue celexa, duloxetine - holding ativan d/t ams 7. HLD - continue gemfibrozil 8. Hypothyroidism - continue synthroid 9. Chronic pain - holding opioids at this time d/t ams 10. Class 3 obesity DVT prophylaxis - lovenox]. Vital Signs Vital Signs Date Time Temp Pulse Resp B/P (MAP) Pulse Ox O2 Delivery O2 Flow Rate FiO2 04/04/21 23:09 64 04/04/21 23:01 17 103/57 (72) 100 Room Air 04/04/21 19:24 98.0 Laboratory Data Labs 24H Laboratory Tests 2 04/04/21 20:44: Immature Granulocyte % (Auto) 0.2, Neutrophils (%) (Auto) 58.5, Lymphocytes (%) (Auto) 30.2, Monocytes (%) (Auto) 8.3H, Eosinophils (%) (Auto) 2.2, Basophils (%) (Auto) 0.6, Neutrophils # (Auto) 5.7, Lymphocytes # (Auto) 2.9, Monocytes # (Auto) 0.8, Eosinophils # (Auto) 0.2, Basophils # (Auto) 0.1, Nucleated Red Blood Cells % (auto) 0.0, Anion Gap 9, Glomerular Filtration Rate 41.7L, Lactic Acid Level 1.1, Calcium Level 9.0, Magnesium Level 1.6L, Total Bilirubin 0.3, Aspartate Amino Transf (AST/SGOT) 16, Alanine Aminotransferase (ALT/SGPT) 44, Alkaline Phosphatase 174H, Ammonia 90H, Total Creatine Kinase 141, Creatine Kinase MB 2.5, Creatine Kinase MB Relative Index 1.77, Troponin I < 0.02, Total Protein 7.0, Albumin 3.1L, Albumin/Globulin Ratio 0.8L, Lipase 300, Ethyl Alcoho l Level 0.004 CBC/BMP Laboratory Tests 04/04/21 20:44 Home Medications Scheduled Atenolol (Atenolol) 50 Mg Tablet, 50 MG PO DAILY Cholecalciferol (Vitamin D3) (Vitamin D3) 50 Mcg Capsule, 50 MCG PO DAILY Cider Vinegar (Apple Cider Vinegar) 500 Mg Tablet, 500 MG PO DAILY Citalopram Hydrobromide (Citalopram HBr) 20 Mg Tablet, 20 MG PO DAILY Cyanocobalamin (Vitamin B-12) (Vitamin B-12) 500 Mcg Tablet, 500 MCG PO DAILY Duloxetine Hcl (Duloxetine HCl) 60 Mg Capsule.dr, 60 MG PO BID Esomeprazole Magnesium (Nexium) 40 Mg Capsule.dr, 40 MG PO DAILY Famotidine (Famotidine) 20 Mg Tablet, 20 MG PO BID Gemfibrozil (Lopid) 600 Mg Tablet, 600 MG PO BID Glimepiride (Amaryl) 1 Mg Tablet, 1 MG PO BID Levothyroxine Sodium (Synthroid) 25 Mcg Tablet, 25 MCG PO DAILY Magnesium Oxide (Magnesium Oxide) 400 Mg Tablet, 400 MG PO DAILY Metformin HCl (Metformin HCl) 500 Mg Tablet, 500 MG PO BIDWM Multivitamin with Iron (Hair Vitamin) 1 Each Tablet, 1 TAB PO DAILY Multivitamins (Thera M Plus Tablet) 1 Each Tablet, 1 TAB PO DAILY Pregabalin (Lyrica) 150 Mg Cap, 150 MG PO BID Pregabalin (Pregabalin) 50 Mg Capsule, 50 MG PO DAILY TAKES MIDDAY Scheduled PRN Cyclobenzaprine HCl (Cyclobenzaprine HCl) 10 Mg Tablet, 10 MG PO DAILY PRN for MUSCLE SPASMS Hydrocodone/Acetaminophen (Hydrocodone-Acetamin 5-325 mg) 1 Each Tablet, 1 TAB PO Q4H PRN for MODERATE PAIN (PS 5-7) Lidocaine (Lidocaine) 120 Gm Oint...g., 1 DOSE EXT QID PRN for NECK PAIN APPLIES TO NECK Lorazepam (Ativan) 1 Mg Tab, 1 MG PO TID PRN for ANXIETY Oxycodone HCl (Oxycodone HCl) 10 Mg Tablet, 10 MG PO TID PRN for SEVERE PAIN (PS 8-10) Tramadol HCl (Tramadol HCl) 50 Mg Tab, 50 MG PO QID PRN for MODERATE PAIN (PS 5- 7) Miscellaneous Medications [Patient Comment] MED REC COMPLETED VIA PREVIOUS CLINIC VISIT AND EXTERNAL MED HISTORY Allergies Coded Allergies: Cephalosporins (Verified Allergy, Intermediate, RASH, 10/27/20) Penicillins (Verified Allergy, Intermediate, RASH, 10/27/20) A-FIB/CHADSVASC A-FIB History Current/History of A-Fib/PAF?: No SAMARIA SAENZ Apr 04, 2021 23:27 TASIA MERRILL MD Apr 07, 2021 03:28
[2021-04-04] MEDS ORDERED: LR 1,000 ML IV SCH (23:35)
[2021-04-04 23:57] LABS: FREE T4 0.96 NG/DL (0.76-1.46)
[2021-04-05 00:18] LABS: RSV AMPLIFICATION NEGATIVE (NEGATIVE)
[2021-04-05] MEDS: HumaLOG INSULIN (NovoLOG) PER UNIT SC SCH ×5 (00:22→21:00)
[2021-04-05 00:52] LABS: INR 1.03; PROTHROMBIN TIME 13.9 SECONDS (12.7-14.5)
[2021-04-05 00:53] LABS: PARTIAL THROMBOPLASTIN TIME 37.8 SECONDS (25.9-37.0)
[2021-04-05 01:12] LABS: C REACTIVE PROTEIN QUANTITATIV 2.75 MG/DL (0.00-0.30); PERCENT SATURATION 9.4 % (13.2-45.0)
[2021-04-05 01:33] LABS: ERYTHROCYTE SEDIMENTATION RATE 65 mm/hr (0-30)
[2021-04-05] MEDS ORDERED: OXYC10TA12 PO (01:53)
[2021-04-05] MEDS ORDERED: HAIRTAB PO (01:53)
[2021-04-05] MEDS ORDERED: LOPI600T PO (01:53)
[2021-04-05] MEDS ORDERED: VITA-172 PO (01:53)
[2021-04-05] MEDS ORDERED: VITA200020 PO (01:53)
[2021-04-05] MEDS ORDERED: SYNT25TA PO (01:53)
[2021-04-05] MEDS ORDERED: DULO1CAP6 PO (01:53)
[2021-04-05] MEDS ORDERED: FAMO20TA PO (01:53)
[2021-04-05] MEDS ORDERED: NEXI40CA PO (01:53)
[2021-04-05] MEDS ORDERED: MAGN400T2 PO (01:53)
[2021-04-05] MEDS ORDERED: CYCL10TA5 PO (01:53)
[2021-04-05] MEDS ORDERED: CITA20TA6 PO (01:53)
[2021-04-05] MEDS ORDERED: PREG50CA2 PO (01:53)
[2021-04-05] MEDS ORDERED: HYDR-4571 PO (01:53)
[2021-04-05] MEDS ORDERED: AMAR1TAB PO (01:53)
[2021-04-05] MEDS ORDERED: LIDO5OIN19 EXT (01:53)
[2021-04-05] MEDS ORDERED: METF-839 PO (01:53)
[2021-04-05] MEDS ORDERED: VITMTA PO (01:53)
[2021-04-05] MEDS ORDERED: APPLTAB2 PO (01:53)
[2021-04-05] MEDS ORDERED: ATEN50TA2 PO (01:53)
[2021-04-05] MEDS ORDERED: PATIENT COMMENT (01:54)
[2021-04-05] MEDS ORDERED: HOME MED LIST COMPLETE! XX SCH (01:55)
[2021-04-05] MEDS ORDERED: LIDOCAINE 5% OINT 30GM TUBE EXT PRN (02:55)
[2021-04-05 03:23] VITALS: BP 141/64
--- NOTE | 2021-04-05 03:24 | REPVR ---
PROCEDURE INFORMATION: Exam: CT Abdomen And Pelvis Without Contrast Exam date and time: 04/04/2021 8:46 PM Age: 66 years old Clinical indication: Abdominal pain; Epigastric; Additional info: Epigastric abdominal tenderness and nausea TECHNIQUE: Imaging protocol: Computed tomography of the abdomen and pelvis without contrast. Radiation optimization: All CT scans at this facility use at least one of these dose optimization techniques: automated exposure control; mA and/or kV adjustment per patient size (includes targeted exams where dose is matched to clinical indication); or iterative reconstruction. COMPARISON: CT ABD/PEL W/IV CONTRAST ONLY 01/30/2021 2:33 PM. Prior report has not been made available for review at the time of this emergent interpretation, however was requested. Study limitations: Evaluation for mass, inflammatory change, including bowel wall/fold thickening, viscera, and vasculature, is suboptimal without contrast. Evaluation is slightly compromised by artifact from positioning of the patient's arms alongside the body wall and motion haziness. FINDINGS: LUNG BASES: Minimal atelectasis and/or pulmonary parenchymal scarring. VASCULAR: Visualized cardiac size is at the upper end of normal. No abdominoaortic aneurysm or retroperitoneal hematoma. There is calcific atherosclerosis. Vascular patency is not evaluated by this exam. PERITONEAL : No free air or free fluid. GI: No hiatal hernia. The stomach is not sufficiently distended to evaluate wall thickening. No asymmetric small-bowel distention to suggest a complete obstruction. Evaluation for bowel wall and fold thickening is limited on this study, secondary to lack of any contrast. No focal mesenteric inflammation is seen. No mesenteric lymphadenopathy by size criteria. Scattered fecal material and gas within portions of the colon and rectum. There is diverticulosis but no evidence of acute diverticulitis. The appendix is not visualized. No secondary inflammation is seen at the cecal apex. HEPATOBILIARY, PANCREAS, SPLEEN: Hepatic length is 19.3 cm. The gallbladder has been removed. No pancreatic inflammation. Spleen not enlarged. There is lobular contour along the medial margin of the spleen with a 2 cm hypodense lesion noted anterosuperiorly, difficult to further characterize but not significantly changed from the prior exam. Posterior splenic calcification again noted. ADRENALS, KIDNEYS, BLADDER, RETROPERITONEAL: Adrenals within normal limits. No hydronephrosis. Mild nonspecific perinephric stranding. No renal calculi. No ureteral calculi. No calculi within the urinary bladder. Several calcifications seen within the pelvis are felt likely to represent phleboliths. Mildly distended urinary bladder. No perivesical stranding. No bladder wall thickening. PELVIC: The uterus is not visualized. Slightly tubular cystic lesion noted along the left adnexa, measuring 3.7 by 1.5 cm is unchanged from the prior study and may represent an ovarian cyst, adnexal cyst or focal dilation of the flow being to. Consider confirmation non emergently by ultrasound as clinically appropriate, if not already done. MUSCULOSKELETAL: Small fat containing umbilical hernia. Small fat containing inguinal hernias. Degenerative changes of the spine and pelvis noted. Mild superior endplate compression fracture deformity at T12 is similar to the prior exam. IMPRESSION: No free-air, free-fluid or focal mesenteric inflammation. Nonspecific gastrointestinal findings. Other findings and limitations discussed above. Electronically signed by: Carmelo Couch On 04/05/2021 03:23:42 AM
[2021-04-05 04:00] VITALS: BP 136/71; O2SAT 92
[2021-04-05] MEDS: LEVOTHYROXINE 25MCG TABLET (0.025MG) PO SCH (05:14)
--- NOTE | 2021-04-05 05:20 | ECGEPIP ---
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
[2021-04-05] MEDS ORDERED: LACTULOSE 20 GM/30 ML SYRUP UD PO SCH (06:00)
[2021-04-05 06:13] LABS: HEMOGLOBIN 10.9 g/dl (12.0-15.5); MEAN CORPUSCULAR HEMOGLOBIN 28.4 pg (27.0-33.0); MEAN CORPUSCULAR HGB CONC 32.1 g/dl (32.0-36.5); MEAN CORPUSCULAR VOLUME 88.5 fl (80.0-96.0); PLATELET COUNT, AUTOMATED 461 10^3/uL (150-450); RED BLOOD COUNT 3.84 10^6/uL (4.00-5.40)
[2021-04-05 06:36] LABS: ALBUMIN 2.9 GM/DL (3.2-5.2); BILIRUBIN,TOTAL 0.3 MG/DL (0.2-1.0); CALCIUM LEVEL 8.6 MG/DL (8.8-10.2); CREATININE FOR GFR 1.08 MG/DL (0.55-1.30); GLOMERULAR FILTRATION RATE 54.4 (>45); MAGNESIUM LEVEL 1.6 MG/DL (1.8-2.4); POTASSIUM SERUM 3.9 MEQ/L (3.5-5.1); TOTAL PROTEIN 6.5 GM/DL (6.4-8.2)
[2021-04-05 08:00] VITALS: BP 134/61
[2021-04-05] MEDS: MAGNESIUM OXIDE 400MG TAB (MAG-OX) PO SCH (08:24)
[2021-04-05] MEDS: CitaloPRAM (CeleXA) 20 MG TAB PO SCH (08:24)
[2021-04-05] MEDS: MULTIVITAMINS/MINERALS THERAP 1 TAB PO SCH (08:30)
[2021-04-05] MEDS: DULoxetine 30MG CAPSULE (CYMBALTA) PO SCH ×2 (08:30→21:39)
[2021-04-05] MEDS: PANTOPRAZOLE 40MG TAB (PROTONIX) PO SCH (08:30)
[2021-04-05] MEDS: FAMOTIDINE 20 MG TAB PO SCH ×2 (08:30→21:39)
[2021-04-05] MEDS: atenoloL 50 MG TAB PO SCH (08:30)
[2021-04-05] MEDS: ENOXAPARIN 30MG/0.3ML SYRINGE (J1650 PER 10MG) SC SCH (08:30)
[2021-04-05] MEDS ORDERED: MAG SULF 1GM/100ML (MAG RUN) 1 GM in IV 1 EA IV ONE (10:30)
[2021-04-05] MEDS: PREGABALIN 75 MG CAP(LYRICA) PO SCH ×2 (11:30→21:39)
[2021-04-05] MEDS: CYANOCOBALAMIN 500 MCG TAB PO SCH (11:31)
[2021-04-05 11:52] VITALS: BP 132/63
[2021-04-05] MEDS: NORCO, ANEXSIA 5/325MG TABLET (HYDROcodone/ACETAMINOPHEN) PO PRN ×2 (12:00→21:38)
--- NOTE | 2021-04-05 12:24 | IPNPDOC ---
Text Note Date of Service The patient was seen on 04/05/21. NOTE SUBJECTIVE: -No acute issues overnight -This AM is alert, awake, oriented but does need frequent redirection -Having massive diarrhea this AM while on lactulose, will de-escalate VITAL SIGNS: Please see below. GENERAL APPEARANCE: NAD, AOx3 now HEENT: NCAT, EOMI, MMM CARDIOVASCULAR: Regular rate, rhythm. No murmurs, rubs, gallops. LUNGS: Good air flow b/l. No wheezing, rales, rhonchi ABDOMEN: Soft, tender to RUQ, RLQ and epigastrium. Most tender to epigastrium EXTREMITIES: No pedal edema appreciated. No overlying skin changes. Pulses intact NEUROLOGICAL: Speech clear but nonsensical. Alert, oriented to self only. No focal deficits PSYCHIATRIC: AOx3 LABORATORY DATA: Reviewed WBC 8 Hgb 10.9 Platelets 461 ESR 65 na 141 K 3.9 ammonia 56 Mag 1.6 (repleted) Cr 1.08 IMAGING: CXR: FINDINGS: Lungs: Unremarkable. No consolidation. Pleural spaces: Unremarkable. No pleural effusion. No pneumothorax. Heart/Mediastinum: Unremarkable. No cardiomegaly. Bones/joints: Unremarkable. IMPRESSION: No acute findings. CT Abd/pelvis: LUNG BASES: Minimal atelectasis and/or pulmonary parenchymal scarring. VASCULAR: Visualized cardiac size is at the upper end of normal. No abdominoaortic aneurysm or retroperitoneal hematoma. There is calcific atherosclerosis. Vascular patency is not evaluated by this exam. PERITONEAL : No free air or free fluid. GI: No hiatal hernia. The stomach is not sufficiently distended to evaluate wall thickening. No asymmetric small-bowel distention to suggest a complete obstruction. Evaluation for bowel wall and fold thickening is limited on this study, secondary to lack of any contrast. No focal mesenteric inflammation is seen. No mesenteric lymphadenopathy by size criteria. Scattered fecal material and gas within portions of the colon and rectum. There is diverticulosis but no evidence of acute diverticulitis. The appendix is not visualized. No secondary inflammation is seen at the cecal apex. HEPATOBILIARY, PANCREAS, SPLEEN: Hepatic length is 19.3 cm. The gallbladder has been removed. No pancreatic inflammation. Spleen not enlarged. There is lobular contour along the medial margin of the spleen with a 2 cm hypodense lesion noted anterosuperiorly, difficult to further characterize but not significantly changed from the prior exam. Posterior splenic calcification again noted. ADRENALS, KIDNEYS, BLADDER, RETROPERITONEAL: Adrenals within normal limits. No hydronephrosis. Mild nonspecific perinephric stranding. No renal calculi. No ureteral calculi. No calculi within the urinary bladder. Several calcifications seen within the pelvis are felt likely to represent phleboliths. Mildly distended urinary bladder. No perivesical stranding. No bladder wall thickening. PELVIC: The uterus is not visualized. Slightly tubular cystic lesion noted along the left adnexa, measuring 3.7 by 1.5 cm is unchanged from the prior study and may represent an ovarian cyst, adnexal cyst or focal dilation of the flow being to. Consider confirmation non emergently by ultrasound as clinically appropriate, if not already done. MUSCULOSKELETAL: Small fat containing umbilical hernia. Small fat containing inguinal hernias. Degenerative changes of the spine and pelvis noted. Mild superior endplate compression fracture deformity at T12 is similar to the prior exam. IMPRESSION: No free-air, free-fluid or focal mesenteric inflammation. Nonspecific gastrointestinal findings. MICROBIOLOGY: Please see below. ASSESSMENT: 66 y/o W with a history of fatty liver, dm2, depression/anxiety brought to ED by significant other for evaluation of abdominal pain, altered mental status and admitted for hepatic encephalopathy i/s/o hyperammonemia. . PLAN: 1. Hepatic encephalopathy: Likely 2/2 to CHAMBERS - MELD score is 10, child newby classification calculated at 7 points or Class B - as we are unable to obtain reliable hx - ammonia acutely elevated to 90 - etiology of exacerbation of liver disease unclear at this time - infection seems unlikely as patient has no sirs criteria, leukocytosis. - we should consider polypharmacy as causation at this time, as patients med list includes ativan, oxycodone, tramadol and pregabalin among others - continue lactulose as daily 2. ARA: likely pre renal, resolved with hydration - ct abd pelvis not indicative of obstruction - daily BMP 3.DM2 - sliding scale insulin - hypoglycemic protocol 4. HTN - continue atenolol 5. GERD - continue famotidine, protonix 6. Depression/anxiety - continue celexa, duloxetine - resume ativan at daily PRN, not TIDP 7. HLD - continue gemfibrozil 8. Hypothyroidism - continue synthroid 9. Chronic pain - reduece norco to Q8HP, continue tramadol, reduce lyrica to 100 BID 10. Crohn's - With ongoing diarrhea i/s/o lactulose, will monitor after de-escalation - ESR is elevated, nothing notable on CT A/P though this was not a contrast enhanced study, will monitor ESR DVT prophylaxis - lovenox VS,Fishbone, I+O VS, Fishbone, I+O Laboratory Tests 04/04/21 20:44 04/05/21 05:35 Vital Signs Date Time Temp Pulse Resp B/P (MAP) Pulse Ox O2 Delivery O2 Flow Rate FiO2 04/05/21 08:30 63 134/61 04/05/21 08:00 98.0 18 96 Room Air I&O- Last 24 Hours up to 6 AM 04/05/21 06:00 Intake Total 1465 ml Balance 1465 ml SHIVANI SAMANIEGO MD Apr 05, 2021 10:20
[2021-04-05 16:00] VITALS: BP 101/49
[2021-04-05] MEDS: traMADol 50 MG TAB PO PRN (18:41)
[2021-04-05] MEDS ORDERED: ONDANSETRON 4MG/2ML VIAL IV PRN (19:40)
[2021-04-05 20:00] VITALS: BP 151/67
[2021-04-05] MEDS: NYSTATIN 100,000 UNITS/GM TOPICAL PWD 15 GM TOP SCH (21:00)
[2021-04-05] MEDS: ONDANSETRON 4 MG ORAL DISINTEGRATING TAB SL PRN (21:39)
[2021-04-05] MEDS: LORazepam 1 MG TAB PO PRN (21:39)
--- NOTE | 2021-04-05 22:09 | REPVR ---
PROCEDURE INFORMATION: Exam: XR Left Foot Exam date and time: 04/05/2021 6:53 PM Age: 66 years old Clinical indication: Pain; Foot; Left; Additional info: Swelling/pain. TECHNIQUE: Imaging protocol: XR Left foot. Views: 3 or more views. COMPARISON: CR BOTH KNEES STANDING AP 06/06/2014 3:33 PM FINDINGS: Bones/joints: Transverse fracture of the proximal aspect of the proximal phalanx of the 5th toe with slight displacement and mild dorsal and lateral angulation of the distal fragment. Soft tissues: Within normal limits. IMPRESSION: Fracture of the proximal aspect of the proximal phalanx of the 5th toe with slight displacement and mild dorsal and lateral angulation of the distal fragment. Electronically signed by: Lex Gueavra On 04/05/2021 22:09:28 PM
[2021-04-06] VITALS: BP 111/62
[2021-04-06 04:00] VITALS: BP 152/67
[2021-04-06] MEDS: LEVOTHYROXINE 25MCG TABLET (0.025MG) PO SCH (05:33)
[2021-04-06] MEDS: NORCO, ANEXSIA 5/325MG TABLET (HYDROcodone/ACETAMINOPHEN) PO PRN ×3 (05:33→22:07)
[2021-04-06 05:52] LABS: HEMOGLOBIN 10.4 g/dl (12.0-15.5); MEAN CORPUSCULAR HEMOGLOBIN 28.4 pg (27.0-33.0); MEAN CORPUSCULAR HGB CONC 31.5 g/dl (32.0-36.5); MEAN CORPUSCULAR VOLUME 90.2 fl (80.0-96.0); PLATELET COUNT, AUTOMATED 459 10^3/uL (150-450); RED BLOOD COUNT 3.66 10^6/uL (4.00-5.40); WHITE BLOOD COUNT 8.4 10^3/uL (4.0-10.0)
[2021-04-06 06:20] LABS: ALBUMIN 2.8 GM/DL (3.2-5.2); ALT/SGPT 31 U/L (12-78); BILIRUBIN,TOTAL 0.2 MG/DL (0.2-1.0); BLOOD UREA NITROGEN 16 MG/DL (7-18); CALCIUM LEVEL 8.7 MG/DL (8.8-10.2); CARBON DIOXIDE LEVEL 28 MEQ/L (21-32); CHLORIDE LEVEL 109 MEQ/L (98-107); GLOMERULAR FILTRATION RATE > 60.0 (>45); GLUCOSE, FASTING 89 MG/DL (70-100); MAGNESIUM LEVEL 1.8 MG/DL (1.8-2.4); POTASSIUM SERUM 3.4 MEQ/L (3.5-5.1); SODIUM LEVEL 143 MEQ/L (136-145); TOTAL PROTEIN 6.2 GM/DL (6.4-8.2)
[2021-04-06] MEDS: ENOXAPARIN 30MG/0.3ML SYRINGE (J1650 PER 10MG) SC SCH (09:34)
[2021-04-06] MEDS: CitaloPRAM (CeleXA) 20 MG TAB PO SCH (09:35)
[2021-04-06] MEDS: FAMOTIDINE 20 MG TAB PO SCH ×2 (09:35→22:05)
[2021-04-06] MEDS: LACTULOSE 20 GM/30 ML SYRUP UD PO SCH (09:35)
[2021-04-06] MEDS: PREGABALIN 75 MG CAP(LYRICA) PO SCH ×2 (09:35→22:04)
[2021-04-06] MEDS: DULoxetine 30MG CAPSULE (CYMBALTA) PO SCH ×2 (09:35→22:04)
[2021-04-06] MEDS: CYANOCOBALAMIN 500 MCG TAB PO SCH (09:35)
[2021-04-06] MEDS: atenoloL 50 MG TAB PO SCH (09:42)
[2021-04-06] MEDS: PANTOPRAZOLE 40MG TAB (PROTONIX) PO SCH (09:43)
[2021-04-06] MEDS: MULTIVITAMINS/MINERALS THERAP 1 TAB PO SCH (09:43)
[2021-04-06] MEDS: MAGNESIUM OXIDE 400MG TAB (MAG-OX) PO SCH (09:43)
--- NOTE | 2021-04-06 11:08 | IPNPDOC ---
Text Note Date of Service The patient was seen on 04/06/21. NOTE SUBJECTIVE: -No acute issues overnight -This AM is alert, awake, oriented but does need frequent redirection about the recent reduction of pain meds and how they likely played a role in her encephalopathy and frequent falls -L ankle and foot swelling with bruising, discussed that she has a fx noted on XR and see refuse ortho eval citing cost of medical care and consultations. For now she feels no pain and is walking on the foot without trouble so declined consultation. VITAL SIGNS: Please see below. GENERAL APPEARANCE: NAD, AOx3 now HEENT: NCAT, EOMI, MMM CARDIOVASCULAR: Regular rate, rhythm. No murmurs, rubs, gallops. LUNGS: Good air flow b/l. No wheezing, rales, rhonchi ABDOMEN: Soft, tender to RUQ, RLQ and epigastrium. Most tender to epigastrium EXTREMITIES: No pedal edema appreciated. Mildly swollen L foot, resolving bruising. Pulses intact NEUROLOGICAL: Speech clear but nonsensical. Alert, oriented to self only. No focal deficits PSYCHIATRIC: AOx3 LABORATORY DATA: Reviewed IMAGING: CXR: FINDINGS: Lungs: Unremarkable. No consolidation. Pleural spaces: Unremarkable. No pleural effusion. No pneumothorax. Heart/Mediastinum: Unremarkable. No cardiomegaly. Bones/joints: Unremarkable. IMPRESSION: No acute findings. CT Abd/pelvis: LUNG BASES: Minimal atelectasis and/or pulmonary parenchymal scarring. VASCULAR: Visualized cardiac size is at the upper end of normal. No abdominoaortic aneurysm or retroperitoneal hematoma. There is calcific atherosclerosis. Vascular patency is not evaluated by this exam. PERITONEAL : No free air or free fluid. GI: No hiatal hernia. The stomach is not sufficiently distended to evaluate wall thickening. No asymmetric small-bowel distention to suggest a complete obstruction. Evaluation for bowel wall and fold thickening is limited on this study, secondary to lack of any contrast. No focal mesenteric inflammation is seen. No mesenteric lymphadenopathy by size criteria. Scattered fecal material and gas within portions of the colon and rectum. There is diverticulosis but no evidence of acute diverticulitis. The appendix is not visualized. No secondary inflammation is seen at the cecal apex. HEPATOBILIARY, PANCREAS, SPLEEN: Hepatic length is 19.3 cm. The gallbladder has been removed. No pancreatic inflammation. Spleen not enlarged. There is lobular contour along the medial margin of the spleen with a 2 cm hypodense lesion noted anterosuperiorly, difficult to further characterize but not significantly changed from the prior exam. Posterior splenic calcification again noted. ADRENALS, KIDNEYS, BLADDER, RETROPERITONEAL: Adrenals within normal limits. No hydronephrosis. Mild nonspecific perinephric stranding. No renal calculi. No ureteral calculi. No calculi within the urinary bladder. Several calcifications seen within the pelvis are felt likely to represent phleboliths. Mildly distended urinary bladder. No perivesical stranding. No bladder wall thickening. PELVIC: The uterus is not visualized. Slightly tubular cystic lesion noted along the left adnexa, measuring 3.7 by 1.5 cm is unchanged from the prior study and may represent an ovarian cyst, adnexal cyst or focal dilation of the flow being to. Consider confirmation non emergently by ultrasound as clinically appropriate, if not already done. MUSCULOSKELETAL: Small fat containing umbilical hernia. Small fat containing inguinal hernias. Degenerative changes of the spine and pelvis noted. Mild superior endplate compression fracture deformity at T12 is similar to the prior exam. IMPRESSION: No free-air, free-fluid or focal mesenteric inflammation. Nonspecific gastrointestinal findings. 18 L Complete Foot XR Bones/joints: Transverse fracture of the proximal aspect of the proximal phalanx of the 5th toe with slight displacement and mild dorsal and lateral angulation of the distal fragment. Soft tissues: Within normal limits. IMPRESSION: Fracture of the proximal aspect of the proximal phalanx of the 5th toe with slight displacement and mild dorsal and lateral angulation of the distal fragment. MICROBIOLOGY: Please see below. ASSESSMENT: 66 y/o W with a history of fatty liver, dm2, depression/anxiety brought to ED by significant other for evaluation of abdominal pain, altered mental status and admitted for hepatic encephalopathy i/s/o hyperammonemia. PLAN: 1. Hepatic encephalopathy: Likely 2/2 to CHAMBERS i/s/o narcotic therapies and likely poor clearance - ammonia was acutely elevated to 90, now downtrended - infection seems unlikely as patient has no sirs criteria, leukocytosis. - Likely 2/2 polypharmacy as causation at this time, as patients med list includes ativan, oxycodone, tramadol and pregabalin among others - continue lactulose as daily 2. ARA: likely pre renal, resolved with hydration - ct abd pelvis not indicative of obstruction - daily BMP 3.DM2 - sliding scale insulin - hypoglycemic protocol 4. HTN - continue atenolol 5. GERD - continue famotidine, protonix 6. Depression/anxiety - continue celexa, duloxetine - resume ativan at daily PRN, not TIDP 7. HLD - continue gemfibrozil 8. Hypothyroidism - continue synthroid 9. Chronic pain - Continue reduced norco to Q8HP, continue tramadol, reduce lyrica to 100 BID 10. Crohn's - With ongoing diarrhea i/s/o lactulose, will monitor after de-escalation - ESR is elevated, nothing notable on CT A/P though this was not a contrast enhanced study, will monitor ESR 11. L 5th toe fx: - ortho consulted - continue pain management as noted above 12. Frequent falls: i/s/o recent ecencephalopathy and polypharmacy - PT/OT ordered - Ongoing med optimization to address polypharmacy DVT prophylaxis - lovenox VS,Fishbone, I+O VS, Fishbone, I+O Laboratory Tests 04/06/21 05:21 Vital Signs Date Time Temp Pulse Resp B/P (MAP) Pulse Ox O2 Delivery O2 Flow Rate FiO2 04/06/21 06:03 17 04/06/21 04:00 97.3 70 152/67 (95) 97 Room Air I&O- Last 24 Hours up to 6 AM 04/06/21 06:00 Intake Total 1980 ml Output Total 200 ml Balance 1780 ml SHIVANI SAMANIEGO MD Apr 06, 2021 09:32
[2021-04-06 12:32] VITALS: BP 164/68
[2021-04-06] MEDS: HumaLOG INSULIN (NovoLOG) PER UNIT SC SCH ×3 (12:53→21:00)
[2021-04-06] MEDS: NYSTATIN 100,000 UNITS/GM TOPICAL PWD 15 GM TOP SCH ×2 (12:54→21:00)
[2021-04-06 14:30] VITALS: BP 164/80
[2021-04-06] MEDS: traMADol 50 MG TAB PO PRN (16:15)
[2021-04-06] MEDS ORDERED: ANALGESIC BALM CRM 3OZ TOP PRN (17:20)
[2021-04-06] MEDS: ONDANSETRON 4 MG ORAL DISINTEGRATING TAB SL PRN (20:46)
[2021-04-06] MEDS: LORazepam 1 MG TAB PO PRN (20:46)
[2021-04-06] MEDS ORDERED: RAMELTEON 8 MG TAB (ROZEREM) PO SCH (21:00)
[2021-04-06 22:00] VITALS: BP 155/66
[2021-04-07] MEDS ORDERED: LORazepam 1 MG TAB PO ONE (01:50)
[2021-04-07 04:00] VITALS: BP 141/89
[2021-04-07 05:49] LABS: HEMATOCRIT 30.2 % (36.0-47.0); HEMOGLOBIN 9.6 g/dl (12.0-15.5); MEAN CORPUSCULAR HEMOGLOBIN 28.4 pg (27.0-33.0); MEAN CORPUSCULAR HGB CONC 31.8 g/dl (32.0-36.5); MEAN CORPUSCULAR VOLUME 89.3 fl (80.0-96.0); PLATELET COUNT, AUTOMATED 259 10^3/uL (150-450); RED BLOOD COUNT 3.38 10^6/uL (4.00-5.40); WHITE BLOOD COUNT 8.3 10^3/uL (4.0-10.0)
[2021-04-07 06:00] VITALS: BP 141/89
[2021-04-07 06:01] LABS: ALT/SGPT 26 U/L (12-78); BILIRUBIN,TOTAL 0.3 MG/DL (0.2-1.0); BLOOD UREA NITROGEN 10 MG/DL (7-18); CALCIUM LEVEL 9.2 MG/DL (8.8-10.2); CARBON DIOXIDE LEVEL 26 MEQ/L (21-32); CHLORIDE LEVEL 107 MEQ/L (98-107); CREATININE FOR GFR 0.77 MG/DL (0.55-1.30); GLOMERULAR FILTRATION RATE > 60.0 (>45); GLUCOSE, FASTING 116 MG/DL (70-100); MAGNESIUM LEVEL 1.6 MG/DL (1.8-2.4); POTASSIUM SERUM 3.7 MEQ/L (3.5-5.1); SODIUM LEVEL 142 MEQ/L (136-145); TOTAL PROTEIN 6.1 GM/DL (6.4-8.2)
[2021-04-07] MEDS: LEVOTHYROXINE 25MCG TABLET (0.025MG) PO SCH (06:05)
[2021-04-07] MEDS: NORCO, ANEXSIA 5/325MG TABLET (HYDROcodone/ACETAMINOPHEN) PO PRN (06:07)
[2021-04-07] MEDS: HumaLOG INSULIN (NovoLOG) PER UNIT SC SCH (07:30)
[2021-04-07] MEDS: PANTOPRAZOLE 40MG TAB (PROTONIX) PO SCH (08:55)
[2021-04-07] MEDS: CitaloPRAM (CeleXA) 20 MG TAB PO SCH (08:55)
[2021-04-07] MEDS: CYANOCOBALAMIN 500 MCG TAB PO SCH (08:55)
[2021-04-07] MEDS: traMADol 50 MG TAB PO PRN ×3 (08:55→10:02)
[2021-04-07 08:58] VITALS: BP 153/65
[2021-04-07] MEDS: atenoloL 50 MG TAB PO SCH (08:58)
[2021-04-07] MEDS: MAGNESIUM OXIDE 400MG TAB (MAG-OX) PO SCH (08:59)
[2021-04-07] MEDS: MULTIVITAMINS/MINERALS THERAP 1 TAB PO SCH (08:59)
[2021-04-07] MEDS: DULoxetine 30MG CAPSULE (CYMBALTA) PO SCH (08:59)
[2021-04-07] MEDS: PREGABALIN 75 MG CAP(LYRICA) PO SCH (08:59)
[2021-04-07] MEDS: FAMOTIDINE 20 MG TAB PO SCH (08:59)
[2021-04-07 09:00] VITALS: BP 153/65
[2021-04-07] MEDS: LACTULOSE 20 GM/30 ML SYRUP UD PO SCH (09:00)
[2021-04-07] MEDS: ENOXAPARIN 30MG/0.3ML SYRINGE (J1650 PER 10MG) SC SCH (09:00)
[2021-04-07] MEDS: NYSTATIN 100,000 UNITS/GM TOPICAL PWD 15 GM TOP SCH (09:01)
[2021-04-07 11:24] LABS: FOLATE 8.1 NG/ML (>5.4)
[2021-04-07] MEDS ORDERED: ONDA4TAB6 SL (13:17)
[2021-04-07] MEDS ORDERED: ATIV1TAB7 PO ×2 (13:17→13:18)
[2021-04-07] MEDS ORDERED: HYDR-4571 PO (13:17)
[2021-04-07] MEDS ORDERED: LACT20EL PO (13:17)
--- NOTE | 2021-04-07 13:46 | IPNPDOC ---
Text Note Date of Service The patient was seen on 04/07/21. NOTE Interim events: I had a length conversation with her son Clement who is the listed next of kin and HCP and gave him a detailed update on her clinical status. He was initially alexa te upset that he had not been given access to get updates on how she is doing and had even contact the family deputy county attorney due to concern of not being able to get updates at a time when families are unable to visit their loved one due to covid-19 restrictions. I told him that I would be happy to give a phone update and also have Ms. Perkins sign a release so that all her records of the hospitalization can be made available at discharge. Him and I agreed that she is perhaps on high doses of her sedating medications that are also predominantly cleared at least in first pass through the liver and has CHAMBERS which reduces her capacity to clear adequately. He was concerned specifically about her lorazepam that she is potentially taking more frequently than prescribed as he counted out her medications and she had more used up than would have been expected per script. He corroborated her recent falls at home which happen most often when her boyfriend is at work and he worries about the time she spends alone. He agreed with my reduction of her lorazepam to daily PRn that she has been receiving in the evenings, TIDP norco and discontinuing of oxycodne and reduction of lyrica. He agreed with the plan to have PT/OT evaluate her for optimal assistive device if she requires one and not rely on the cane her significant other made for her without further evaluation and referral to receive home services. SUBJECTIVE: -No acute issues overnight OBJECTIVE: VITAL SIGNS: Please see below. GENERAL APPEARANCE: NAD, AOx3 now HEENT: NCAT, EOMI, MMM CARDIOVASCULAR: Regular rate, rhythm. No murmurs, rubs, gallops. LUNGS: Good air flow b/l. No wheezing, rales, rhonchi ABDOMEN: Soft, mildly tender on palpation, NTND EXTREMITIES: No pedal edema appreciated. Mildly swollen L foot, resolving bruising. Pulses intact NEUROLOGICAL: AOx3, conversational with clear speech, nonfocal examination PSYCHIATRIC: AOx3 LABORATORY DATA: Reviewed WBC 8.3 Hgb 9.6 platelets 259 na 142 K 3.7 Cr 0.77 mag 1.6 ammonia 43 IMAGING: CXR: FINDINGS: Lungs: Unremarkable. No consolidation. Pleural spaces: Unremarkable. No pleural effusion. No pneumothorax. Heart/Mediastinum: Unremarkable. No cardiomegaly. Bones/joints: Unremarkable. IMPRESSION: No acute findings. CT Abd/pelvis: LUNG BASES: Minimal atelectasis and/or pulmonary parenchymal scarring. VASCULAR: Visualized cardiac size is at the upper end of normal. No abdominoaortic aneurysm or retroperitoneal hematoma. There is calcific atherosclerosis. Vascular patency is not evaluated by this exam. PERITONEAL : No free air or free fluid. GI: No hiatal hernia. The stomach is not sufficiently distended to evaluate wall thickening. No asymmetric small-bowel distention to suggest a complete obstruction. Evaluation for bowel wall and fold thickening is limited on this study, secondary to lack of any contrast. No focal mesenteric inflammation is seen. No mesenteric lymphadenopathy by size criteria. Scattered fecal material and gas within portions of the colon and rectum. There is diverticulosis but no evidence of acute diverticulitis. The appendix is not visualized. No secondary inflammation is seen at the cecal apex. HEPATOBILIARY, PANCREAS, SPLEEN: Hepatic length is 19.3 cm. The gallbladder has been removed. No pancreatic inflammation. Spleen not enlarged. There is lobular contour along the medial margin of the spleen with a 2 cm hypodense lesion noted anterosuperiorly, difficult to further characterize but not significantly changed from the prior exam. Posterior splenic calcification again noted. ADRENALS, KIDNEYS, BLADDER, RETROPERITONEAL: Adrenals within normal limits. No hydronephrosis. Mild nonspecific perinephric stranding. No renal calculi. No ureteral calculi. No calculi within the urinary bladder. Several calcifications seen within the pelvis are felt likely to represent phleboliths. Mildly distended urinary bladder. No perivesical stranding. No bladder wall thickening. PELVIC: The uterus is not visualized. Slightly tubular cystic lesion noted along the left adnexa, measuring 3.7 by 1.5 cm is unchanged from the prior study and may represent an ovarian cyst, adnexal cyst or focal dilation of the flow being to. Consider confirmation non emergently by ultrasound as clinically appropriate, if not already done. MUSCULOSKELETAL: Small fat containing umbilical hernia. Small fat containing inguinal hernias. Degenerative changes of the spine and pelvis noted. Mild superior endplate compression fracture deformity at T12 is similar to the prior exam. IMPRESSION: No free-air, free-fluid or focal mesenteric inflammation. Nonspecific gastrointestinal findings. 04/05 L Complete Foot XR Bones/joints: Transverse fracture of the proximal aspect of the proximal phalanx of the 5th toe with slight displacement and mild dorsal and lateral angulation of the distal fragment. Soft tissues: Within normal limits. IMPRESSION: Fracture of the proximal aspect of the proximal phalanx of the 5th toe with slight displacement and mild dorsal and lateral angulation of the distal fragment. MICROBIOLOGY: Please see below. ASSESSMENT: 66 y/o W with a history of fatty liver, dm2, depression/anxiety brought to ED by significant other for evaluation of abdominal pain, altered mental status and admitted for hepatic encephalopathy i/s/o hyperammonemia and p olypharmacy. PLAN: 1. Hepatic encephalopathy: Likely 2/2 to CHAMBERS i/s/o narcotic therapies and likel y poor clearance - ammonia was acutely elevated to 90, now downtrended - infection seems unlikely as patient has no sirs criteria, leukocytosis. - Likely 2/2 polypharmacy as causation at this time, as patients med list includes ativan, oxycodone, tramadol and pregabalin among others - continue lactulose daily 2. ARA: likely pre renal, resolved with hydration - ct abd pelvis not indicative of obstruction - daily BMP 3.DM2 - sliding scale insulin - hypoglycemic protocol 4. HTN - continue atenolol 5. GERD - continue famotidine, protonix 6. Depression/anxiety - continue celexa, duloxetine - continue ativan at daily PRN, not TIDP 7. HLD - continue gemfibrozil 8. Hypothyroidism - continue synthroid 9. Chronic pain - Continue reduced norco to Q8HP, continue tramadol, reduce lyrica to 100 BID 10. Crohn's - With ongoing diarrhea i/s/o lactulose, will monitor after de-escalation - ESR is elevated, nothing notable on CT A/P though this was not a contrast enhanced study, will monitor ESR 11. L 5th toe fx: - Declined ortho consult - continue pain management as noted above 12. Frequent falls: i/s/o recent ecencephalopathy and polypharmacy - PT/OT ordered - Ongoing med optimization to address polypharmacy DVT prophylaxis - lovenox Dispo: likely home tomorrow VS,Fishbone, I+O VS, Fishbone, I+O Laboratory Tests 04/07/21 05:24 Vital Signs Date Time Temp Pulse Resp B/P (MAP) Pulse Ox O2 Delivery O2 Flow Rate FiO2 04/07/21 06:37 19 Room Air 04/07/21 06:00 97.7 64 141/89 (106) 95 I&O- Last 24 Hours up to 6 AM 04/07/21 06:00 Intake Total 1900 ml Output Total 200 ml Balance 1700 ml SHIVANI SAMANIEGO MD Apr 07, 2021 09:03
--- NOTE | 2021-04-07 14:49 | DS.PDOC ---
Discharge Summary General Date of Admission Apr 04, 2021 at 23:21 Date of Discharge 04/07/2021 Attending Physician: SHIVANI SAMANIEGO MD Discharge Summary PROCEDURES PERFORMED DURING STAY: None ADMITTING DIAGNOSES: Hepatic encephalopathy DISCHARGE DIAGNOSES: Encephalopathy - likely mixed hepatic with hyperammonemia and toxic 2/2 multiple sedating medications ARA: likely pre renal, resolved with hydration DM2 HTN GERD Depression/anxiety HLD Hypothyroidism Chronic pain Crohn's L 5th toe acute fracture Frequent falls Lupus Fatty liver disease COMPLICATIONS/CHIEF COMPLAINT: Acute Kidney Injury, Hepatic Encephalopathy. HISTORY OF PRESENT ILLNESS: 66 y/o W with a history of fatty liver, dm2, depression/anxiety brought to ED by significant other for evaluation of abdomi nal pain, altered mental status and admitted for hepatic encephalopathy i/s/o hyperammonemia. HOSPITAL COURSE: Admission ammonia level was 90, and she was started on lactulose with good effect and mentation had cleared and returned to baseline by day 2 morning. All sedating meds were also held at admission including norco, oxycodone, lyrica, tizanidine, tramadol, ativan. I discussed her polypharmacy with her and her son Clement who is the HCP proxy and they both agreed with my recommendation to begin reduction and medication reconciliation of her many psychotropic medications that are likely contributing to her history of multiple falls and encephalopathy especially because of baseline liver disease with lower clearance ability and the psychotropic effects of the medications. I reduced her ativan to once daily that she consistently took at night time while in the hospital, stopped oxycod one, reduced the norco to 1 5/325 tab Q8HP for severe pain while continuing the tramadol 50mg QIDP for moderate pain and reduced the Lyrica to 50 BID. I recommended that she promptly follows up with her PCP to continue de-escalation of sedating medications. Of note, I noted that her L foot was swollen with some bruising and ordered a complete foot XR that showed a proximal 5th digit fracture that was asymptomatic and she declined evaluation by orthopedics. Her course by issue was otherwise as below: PLAN: 1. Hepatic encephalopathy: Likely 2/2 to CHAMBERS i/s/o narcotic therapies and likely poor clearance - ammonia was acutely elevated to 90, now downtrended - infection seems unlikely as patient has no sirs criteria, leukocytosis. - Likely 2/2 polypharmacy as causation at this time, as patients med list includes ativan, oxycodone, tramadol and pregabalin among others - continue lactulose as daily 2. ARA: likely pre renal, resolved with hydration - ct abd pelvis not indicative of obstruction 3.DM2 - sliding scale insulin - hypoglycemic protocol 4. HTN - continued atenolol 5. GERD - continued famotidine, protonix 6. Depression/anxiety - continued celexa, duloxetine - ativan at daily PRN, not TIDP 7. HLD - continue gemfibrozil 8. Hypothyroidism - continue synthroid 9. Chronic pain - Continue reduced norco to Q8HP, continue tramadol, reduce lyrica to 100 BID 10. Crohn's - With ongoing diarrhea i/s/o lactulose, improved after de-escalation - ESR is elevated, nothing notable on CT A/P though this was not a contrast enhanced study, to follow up with PCP 11. L 5th toe fx: -Declined ortho consult 12. Frequent falls: i/s/o recent ecencephalopathy and polypharmacy - PT/OT cleared her for home discharge -Started med optimization to address polypharmacy DISCHARGE MEDICATIONS: Please see below. ALLERGIES: Please see below. PHYSICAL EXAMINATION ON DISCHARGE: VITAL SIGNS: Please see below. GENERAL APPEARANCE: NAD, AOx3 now HEENT: NCAT, EOMI, MMM CARDIOVASCULAR: Regular rate, rhythm. No murmurs, rubs, gallops. LUNGS: Good air flow b/l. No wheezing, rales, rhonchi ABDOMEN: Soft, nontender EXTREMITIES: No pedal edema appreciated. Mildly swollen L foot, resolving br uising. Pulses intact NEUROLOGICAL: Speech clear, AOx3, 5/5 strength throughout PSYCHIATRIC: AOx3 LABORATORY DATA: Please see below IMAGING: CXR: FINDINGS: Lungs: Unremarkable. No consolidation. Pleural spaces: Unremarkable. No pleural effusion. No pneumothorax. Heart/Mediastinum: Unremarkable. No cardiomegaly. Bones/joints: Unremarkable. IMPRESSION: No acute findings. CT Abd/pelvis: LUNG BASES: Minimal atelectasis and/or pulmonary parenchymal scarring. VASCULAR: Visualized cardiac size is at the upper end of normal. No abdominoaortic aneurysm or retroperitoneal hematoma. There is calcific atherosclerosis. Vascular patency is not evaluated by this exam. PERITONEAL : No free air or free fluid. GI: No hiatal hernia. The stomach is not sufficiently distended to evaluate wall thickening. No asymmetric small-bowel distention to suggest a complete obstruction. Evaluation for bowel wall and fold thickening is limited on this study, secondary to lack of any contrast. No focal mesenteric inflammation is seen. No mesenteric lymphadenopathy by size criteria. Scattered fecal material and gas within portions of the colon and rectum. There is diverticulosis but no evidence of acute diverticulitis. The appendix is not visualized. No secondary inflammation is seen at the cecal apex. HEPATOBILIARY, PANCREAS, SPLEEN: Hepatic length is 19.3 cm. The gallbladder has been removed. No pancreatic inflammation. Spleen not enlarged. There is lobular contour along the medial margin of the spleen with a 2 cm hypodense lesion noted anterosuperiorly, difficult to further characterize but not significantly changed from the prior exam. Posterior splenic calcification again noted. ADRENALS, KIDNEYS, BLADDER, RETROPERITONEAL: Adrenals within normal limits. No hydronephrosis. Mild nonspecific perinephric stranding. No renal calculi. No ureteral calculi. No calculi within the urinary bladder. Several calcifications seen within the pelvis are felt likely to represent phleboliths. Mildly distended urinary bladder. No perivesical stranding. No bladder wall thickening. PELVIC: The uterus is not visualized. Slightly tubular cystic lesion noted along the left adnexa, measuring 3.7 by 1.5 cm is unchanged from the prior study and may represent an ovarian cyst, adnexal cyst or focal dilation of the flow being to. Consider confirmation non emergently by ultrasound as clinically appropriate, if not already done. MUSCULOSKELETAL: Small fat containing umbilical hernia. Small fat containing inguinal hernias. Degenerative changes of the spine and pelvis noted. Mild superior endplate compression fracture deformity at T12 is similar to the prior exam. IMPRESSION: No free-air, free-fluid or focal mesenteric inflammation. Nonspecific gastrointestinal findings. 18 L Complete Foot XR Bones/joints: Transverse fracture of the proximal aspect of the proximal phalanx of the 5th toe with slight displacement and mild dorsal and lateral angulation of the distal fragment. Soft tissues: Within normal limits. IMPRESSION: Fracture of the proximal aspect of the proximal phalanx of the 5th toe with slight displacement and mild dorsal and lateral angulation of the distal fragment. MICROBIOLOGY: Please see below. PROGNOSIS: Good ACTIVITY: As tolerated DIET: Consistent carb diet DISCHARGE PLAN: Home w/ adjusted meds DISPOSITION: Home DISCHARGE INSTRUCTIONS: Home with norco 1 tab TIDP for severe pain, continue tramadol PRN per home script for moderate pain, lyrica 150 BID, lorazepam 1mg QHS. ITEMS TO FOLLOWUP ON ON OUTPATIENT: Med adjustments to reduce risk for toxic encephalopathy from sedating meds and frequent falls DISCHARGE CONDITION: Stable TIME SPENT ON DISCHARGE: 40 minutes. Vital Signs/I&Os Vital Signs Date Time Temp Pulse Resp B/P (MAP) Pulse Ox O2 Delivery O2 Flow Rate FiO2 04/07/21 09:25 14 04/07/21 09:00 71 153/65 Room Air 04/07/21 06:00 97.7 95 I&O- Last 24 Hours up to 6 AM 04/07/21 06:00 Intake Total 1900 ml Output Total 200 ml Balance 1700 ml Laboratory Data Labs 24H Laboratory Tests 2 04/06/21 16:30: Bedside Glucose (Misc Panel) 144H 04/06/21 20:26: Bedside Glucose (Misc Panel) 136H 04/07/21 04:24: Bedside Glucose (Misc Panel) 122H 04/07/21 05:24: Nucleated Red Blood Cells % (auto) 0.0, Anion Gap 9, Glomerular Filtration Rate > 60.0, Calcium Level 9.2, Magnesium Level 1.6L, Total Bilirubin 0.3, Aspartate Amino Transf (AST/SGOT) 14, Alanine Aminotransferase (ALT/SGPT) 26, Alkaline Phosphatase 128H, Ammonia 43H, Total Protein 6.1L, Albumin 3.0L, Albumin/Globulin Ratio 1.0L 04/07/21 12:25: Bedside Glucose (Misc Panel) 156H 04/07/21 12:36: Bedside Glucose (Misc Panel) 150H CBC/BMP Laboratory Tests 04/07/21 05:24 FSBS Laboratory Tests Test 04/06/21 16:30 04/06/21 20:26 04/07/21 04:24 04/07/21 12:25 Range/Units Bedside Glucose (Misc Panel) 144 136 122 156 80-115 MG/DL Test 04/07/21 12:36 Range/Units Bedside Glucose (Misc Panel) 150 80-115 MG/DL Discharge Medications Scheduled Atenolol (Atenolol) 50 Mg Tablet, 50 MG PO DAILY, (Reported) Cholecalciferol (Vitamin D3) (Vitamin D3) 50 Mcg Capsule, 50 MCG PO DAILY, (Reported) Cider Vinegar (Apple Cider Vinegar) 500 Mg Tablet, 500 MG PO DAILY, (Reported) Citalopram Hydrobromide (Citalopram HBr) 20 Mg Tablet, 20 MG PO DAILY, (Reported) Cyanocobalamin (Vitamin B-12) (Vitamin B-12) 500 Mcg Tablet, 500 MCG PO DAILY, (Reported) Duloxetine Hcl (Duloxetine HCl) 60 Mg Capsule.dr, 60 MG PO BID, (Reported) Esomeprazole Magnesium (Nexium) 40 Mg Capsule.dr, 40 MG PO DAILY, (Reported) Famotidine (Famotidine) 20 Mg Tablet, 20 MG PO BID, (Reported) Gemfibrozil (Lopid) 600 Mg Tablet, 600 MG PO BID, (Reported) Glimepiride (Amaryl) 1 Mg Tablet, 1 MG PO BID, (Reported) Lactulose (Lactulose) 10 Gm/15 Ml Solution, 30 ML PO DAILY Levothyroxine Sodium (Synthroid) 25 Mcg Tablet, 25 MCG PO DAILY, (Reported) Lorazepam (Ativan) 1 Mg Tab, 1 MG PO QHS Magnesium Oxide (Magnesium Oxide) 400 Mg Tablet, 400 MG PO DAILY, (Reported) Metformin HCl (Metformin HCl) 500 Mg Tablet, 500 MG PO BIDWM, (Reported) Multivitamin with Iron (Hair Vitamin) 1 Each Tablet, 1 TAB PO DAILY, (Reported) Multivitamins (Thera M Plus Tablet) 1 Each Tablet, 1 TAB PO DAILY, (Reported) Pregabalin (Lyrica) 150 Mg Cap, 150 MG PO BID, (Reported) Scheduled PRN Cyclobenzaprine HCl (Cyclobenzaprine HCl) 10 Mg Tablet, 10 MG PO DAILY PRN for MUSCLE SPASMS, (Reported) Hydrocodone/Acetaminophen (Hydrocodone-Acetamin 5-325 mg) 1 Each Tablet, 1 TAB PO Q8HP PRN for SEVERE PAIN (PS 8-10) Lidocaine (Lidocaine) 120 Gm Oint...g., 1 DOSE EXT QID PRN for NECK PAIN, (Reported) APPLIES TO NECK Ondansetron (Ondansetron Odt) 4 Mg Tab.rapdis, 4 MG SL Q6HP PRN for NAUSEA OR VOMITING Tramadol HCl (Tramadol HCl) 50 Mg Tab, 50 MG PO QID PRN for MODERATE PAIN (PS 5- 7), (Reported) Miscellaneous Medications [Patient Comment] , (Reported) MED REC COMPLETED VIA PREVIOUS CLINIC VISIT AND EXTERNAL MED HISTORY Allergies Coded Allergies: Cephalosporins (Verified Allergy, Intermediate, RASH, 10/27/20) Penicillins (Verified Allergy, Intermediate, RASH, 10/27/20) SHIVANI SAMANIEGO MD Apr 07, 2021 14:49
== END 2021-04-07 13:46 | disposition home or self-care (01) | DRG 92 ==
LOC: M ED 19:24 → M ED INP 23:21 → M PCU 04-05 03:19 → M MSPAV 04-06 14:30
PROVIDERS: ADMIT Internal Medicine; ATTEND Internal Medicine
DX: G92 Toxic encephalopathy (principal); N17.9 Acute kidney failure, unspecified; K50.90 Crohn's disease, unspecified, without complications; K72.90 Hepatic failure, unspecified without coma; K75.81 Nonalcoholic steatohepatitis (NASH); S92.912A Unspecified fracture of left toe(s), initial encounter for closed fracture; F32.9 Major depressive disorder, single episode, unspecified; F41.9 Anxiety disorder, unspecified; K21.9 Gastro-esophageal reflux disease without esophagitis; I10 Essential (primary) hypertension; E11.9 Type 2 diabetes mellitus without complications; E03.9 Hypothyroidism, unspecified; G89.29 Other chronic pain; R29.6 Repeated falls; Z79.899 Other long term (current) drug therapy; Z88.0 Allergy status to penicillin; Z88.8 Allergy status to other drugs, medicaments and biological substances

== ENCOUNTER → 2021-04-23 | Outpatient (REF) | payer MEDICARE ==
[~2021-04-23] MED LIST changes: +APPLTAB2 PO; +CITA20TA6 PO; +CYCL10TA5 PO; +FAMO20TA PO; +HAIRTAB PO; +HYDR-4571 PO; +LACT20EL PO; +LIDO5OIN19 EXT; +LOPI600T PO; +MAGN400T2 PO; +METF-839 PO; +NEXI40CA PO; +ONDA4TAB6 SL; +OXYC10TA12 PO; +PATIENT COMMENT; +PREG50CA2 PO; +SYNT25TA PO; +VITA-172 PO; +VITA200020 PO; +VITMTA PO
== END ==
LOC: M SFHCCLAY 11:56
PROVIDERS: ATTEND Family Medicine
DX: R70.0 Elevated erythrocyte sedimentation rate (principal); Z23 Encounter for immunization
CPT/HCPCS: 85652; 90682; G0008; G0463

== ENCOUNTER 2021-07-09 09:55 | Outpatient (CLI) | payer MEDICARE ==
[~2021-07-09] VITALS: Ht 163.8 cm; Wt 96.2 kg
[~2021-07-09 09:55] MED LIST changes: +ALBUTEROL 90 MCG/ACT 8GM HFA INHALER INH PRN; +ALBUTEROL SULFATE 2.5 MG/0.5 ML INH NEB SOLN INH PRN; +EPINEPHrine INJ 1 MG/ML 1ML AMP IM PRN; +NS 1,000 ML IV SCH; +diphenhydrAMINE 50MG/ML VIAL (J1200) IV PRN; +methylPREDNISolone 125MG 2ML VIAL IV PRN
[2021-07-09] MEDS ORDERED: CASIRIVIMAB/IMDEVIMAB 1,200 MG in NS 250 ML IV ONE (10:00)
[2021-07-09 10:18] VITALS: BP 137/63
[2021-07-09 10:48] VITALS: BP 130/63
[2021-07-09 11:18] VITALS: BP 138/70
[2021-07-09 12:18] VITALS: BP 136/66
== END 2021-07-09 12:18 | disposition home or self-care (01) ==
LOC: M OPCLI4PR 09:55
PROVIDERS: ATTEND Family Medicine
DX: U07.1 COVID-19 (principal); Z88.0 Allergy status to penicillin; Z88.8 Allergy status to other drugs, medicaments and biological substances

== ENCOUNTER → 2021-12-22 | Outpatient (REF) | payer MEDICARE, OTHER ==
[~2021-12-22] MED LIST changes: -ALBUTEROL 90 MCG/ACT 8GM HFA INHALER INH PRN; -ALBUTEROL SULFATE 2.5 MG/0.5 ML INH NEB SOLN INH PRN; +CYCL10TA20 PO; -CYCL10TA5 PO; -EPINEPHrine INJ 1 MG/ML 1ML AMP IM PRN; -NS 1,000 ML IV SCH; -diphenhydrAMINE 50MG/ML VIAL (J1200) IV PRN; -methylPREDNISolone 125MG 2ML VIAL IV PRN
[2021-12-22 16:58] LABS: APPEARANCE, URINE HAZY (CLEAR); BACTERIA, URINE AUTO 2+ (NEGATIVE); BILIRUBIN, URINE AUTO NEGATIVE (NEGATIVE); BLOOD, URINE BLOOD NEGATIVE (NEGATIVE); COLOR, URINE YELLOW (YELLOW); GLUCOSE, URINE (UA) AUTO NEGATIVE (NEGATIVE); KETONE, URINE AUTO NEGATIVE (NEGATIVE); LEUKOCYTE ESTERASE, URINE AUTO 2+ (NEGATIVE); NITRITE, URINE AUTO NEGATIVE (NEGATIVE); PROTEIN, URINE AUTO 1+ mg/dL (NEGATIVE); RBC, URINE AUTO 1 /HPF (0-3); SPECIFIC GRAVITY URINE AUTO 1.024 (1.002-1.035); SQUAMOUS EPITHELIAL CELL UR AU 7 /HPF (0-6); UROBILINOGEN, URINE AUTO 0.2 mg/dL (0.0-2.0); WBC, URINE AUTO 8 /HPF (0-3)
[2021-12-22 17:01] LABS: BASO # 0.1 10^3/uL (0.0-0.2); BASO % 0.5 % (0.0-1.0); EOS # 0.1 10^3/uL (0.0-0.5); EOS % 0.8 % (0.0-3.0); HEMATOCRIT 36.6 % (36.0-47.0); HEMOGLOBIN 11.7 g/dl (12.0-15.5); LYMPH # 2.8 10^3/uL (1.5-5.0); LYMPH % 25.4 % (24.0-44.0); MEAN CORPUSCULAR VOLUME 90.6 fl (80.0-96.0); MONO # 0.6 10^3/uL (0.0-0.8); MONO % 5.4 % (2.0-8.0); NEUTROPHILS # 7.5 10^3/uL (1.5-8.5); NEUTROPHILS % 67.5 % (36.0-66.0); PLATELET COUNT, AUTOMATED 510 10^3/uL (150-450); RED BLOOD COUNT 4.04 10^6/uL (4.00-5.40); WHITE BLOOD COUNT 11.1 10^3/uL (4.0-10.0)
[2021-12-22 17:17] LABS: MAGNESIUM LEVEL 1.6 MG/DL (1.8-2.4); PHOSPHORUS LEVEL 3.2 MG/DL (2.5-4.9); TOTAL PROTEIN,RANDOM URINE 48.3 MG/DL (0.0-12.0)
[2021-12-22 17:28] LABS: TOTAL 25(OH) VITAMIN D 15.7 NG/ML (30.0-100.0)
[2021-12-24 09:29] LABS: DRVV SCREEN 49.5 SEC
[2021-12-24 09:30] LABS: PTT LUPUS TYPE ANTICOAG SCREEN 1.3 (0-1.2)
[2021-12-24 09:56] LABS: DRVV CONFIRM 43.3 SEC; LUPUS CONFIRM RATIO 1.2
[2021-12-24 10:01] LABS: NORMALIZED RATIO 1.08 (0.00-1.20)
== END ==
LOC: M SFHCRHEU 15:01
PROVIDERS: ATTEND Internal Medicine
DX: R76.8 Other specified abnormal immunological findings in serum (principal); M79.10 Myalgia, unspecified site; Z79.899 Other long term (current) drug therapy

== ENCOUNTER → 2022-01-09 | Outpatient (CLI) | payer MEDICARE | LOC: M WHC 14:04 | PROVIDERS: ATTEND Internal Medicine | DX: Z78.0 Asymptomatic menopausal state (principal) ==

== ENCOUNTER → 2022-01-16 | Outpatient (CLI) | payer OTHER ==
[2022-01-16 14:31] LABS: HEMOGLOBIN A1c 7.3 %
[2022-01-16 14:35] LABS: CALCIUM LEVEL 10.4 MG/DL (8.8-10.2); CHOLESTEROL RISK RATIO 5.39 (<5); CREATININE FOR GFR 1.09 MG/DL (0.55-1.30); FREE T4 0.92 NG/DL (0.76-1.46); GLOMERULAR FILTRATION RATE 53.8 (>45); POTASSIUM SERUM 4.3 MEQ/L (3.5-5.1); THYROID STIMULATING HORMONE 4.31 uIU/ML (0.358-3.740)
[2022-01-16 14:38] LABS: CREATININE, URINE 98.4 MG/DL; MALB URINE SIEMENS 24.3 MG/L; MAU/CREAT RATIO 24.6 MCG/MG (0.0-30.0)
== END ==
LOC: M LAB 12:52
PROVIDERS: ATTEND Family Medicine
DX: E11.9 Type 2 diabetes mellitus without complications (principal); E78.2 Mixed hyperlipidemia; E03.9 Hypothyroidism, unspecified

== ENCOUNTER → 2022-11-01 | Outpatient (CLI) | payer OTHER, MEDICARE | LOC: M LAB 12:39 | PROVIDERS: ATTEND Internal Medicine | DX: E55.9 Vitamin D deficiency, unspecified (principal) ==

== ENCOUNTER → 2022-11-01 | Outpatient (CLI) | payer OTHER, MEDICARE ==
[2022-11-01 13:13] LABS: BASO % 0.4 % (0.0-1.0); EOS # 0.1 10^3/uL (0.0-0.5); EOS % 1.3 % (0.0-3.0); HEMOGLOBIN 10.5 g/dl (12.0-15.5); LYMPH # 3.3 10^3/uL (1.5-5.0); LYMPH % 32.5 % (24.0-44.0); MEAN CORPUSCULAR HEMOGLOBIN 28.8 pg (27.0-33.0); MEAN CORPUSCULAR HGB CONC 31.8 g/dl (32.0-36.5); MEAN CORPUSCULAR VOLUME 90.4 fl (80.0-96.0); MONO # 0.5 10^3/uL (0.0-0.8); MONO % 5.1 % (2.0-8.0); NEUTROPHILS # 6.2 10^3/uL (1.5-8.5); NEUTROPHILS % 60.4 % (36.0-66.0); PLATELET COUNT, AUTOMATED 314 10^3/uL (150-450); RED BLOOD COUNT 3.65 10^6/uL (4.00-5.40); WHITE BLOOD COUNT 10.2 10^3/uL (4.0-10.0)
[2022-11-01 13:24] LABS: HEMOGLOBIN A1c 7.1 % (4.0-6.0)
[2022-11-01 13:47] LABS: ALBUMIN 3.4 G/DL (3.2-5.2); ALKALINE PHOSPHATASE 95 U/L (46-116); ALT/SGPT 19 U/L (7.0-40); AST/SGOT 10 U/L (<34); BILIRUBIN,TOTAL 0.2 MG/DL (0.3-1.2); BLOOD UREA NITROGEN 15 MG/DL (9-23); CALCIUM LEVEL 9.5 MG/DL (8.3-10.6); CARBON DIOXIDE LEVEL 27 MMOL/L (20-31); CHLORIDE LEVEL 105 MMOL/L (98-107); CREATININE FOR GFR 0.84 MG/DL (0.55-1.30); GLOMERULAR FILTRATION RATE > 60.0 (>45); GLUCOSE, FASTING 138 MG/DL (74-106); POTASSIUM SERUM 3.9 MMOL/L (3.5-5.1); SODIUM LEVEL 139 MMOL/L (136-145); TOTAL PROTEIN 6.6 G/DL (5.7-8.2)
[2022-11-01 13:50] LABS: THYROID STIMULATING HORMONE 3.419 uIU/ML (0.55-4.78)
[2022-11-01 13:51] LABS: FOLATE 23.3 NG/ML (>5.4); VITAMIN B12 LEVEL 622 PG/ML (211-911)
== END ==
LOC: M LAB 12:41
PROVIDERS: ATTEND Student in an Organized Health Care Education/Training Program
DX: R41.3 Other amnesia (principal); E11.9 Type 2 diabetes mellitus without complications

== ENCOUNTER → 2022-12-18 | Outpatient (REF) | payer OTHER, MEDICARE ==
[2022-12-18 16:55] LABS: FREE T4 0.99 NG/DL (0.89-1.76)
[2022-12-18 17:20] LABS: THYROID STIMULATING HORMONE 0.934 uIU/ML (0.55-4.78)
== END ==
LOC: M LABWUC 16:17
PROVIDERS: ATTEND Student in an Organized Health Care Education/Training Program
DX: E03.9 Hypothyroidism, unspecified (principal)

== ENCOUNTER 2023-05-12 18:10 | Emergency (ER) | payer OTHER, MEDICARE ==
[~2023-05-12] VITALS: Ht 160 cm; Wt 95.5 kg
[~2023-05-12 18:10] MED LIST changes: +GLIP5TAB17 PO; -GLIP5TAB8 PO; -PREG50CA2 PO; +PREG50CA3 PO
[2023-05-12 18:12] VITALS: BP 160/82
[2023-05-12 19:05] LABS: BASO # 0.1 10^3/uL (0.0-0.2); BASO % 0.5 % (0.0-1.0); EOS # 0.1 10^3/uL (0.0-0.5); EOS % 0.6 % (0.0-3.0); HEMATOCRIT 37.8 % (36.0-47.0); HEMOGLOBIN 12.2 g/dl (12.0-15.5); LYMPH # 1.8 10^3/uL (1.5-5.0); LYMPH % 16.6 % (24.0-44.0); MEAN CORPUSCULAR HEMOGLOBIN 28.8 pg (27.0-33.0); MEAN CORPUSCULAR HGB CONC 32.3 g/dl (32.0-36.5); MEAN CORPUSCULAR VOLUME 89.2 fl (80.0-96.0); MONO # 0.5 10^3/uL (0.0-0.8); MONO % 4.2 % (2.0-8.0); NEUTROPHILS # 8.4 10^3/uL (1.5-8.5); NEUTROPHILS % 77.7 % (36.0-66.0); PLATELET COUNT, AUTOMATED 328 10^3/uL (150-450); RED BLOOD COUNT 4.24 10^6/uL (4.00-5.40); WHITE BLOOD COUNT 10.7 10^3/uL (4.0-10.0)
[2023-05-12 19:23] LABS: LIPASE 41 U/L (12-53)
[2023-05-12 19:26] LABS: ALBUMIN 3.7 G/DL (3.2-5.2); ALKALINE PHOSPHATASE 102 U/L (46-116); ALT/SGPT 24 U/L (7.0-40); AST/SGOT 12 U/L (<34); BILIRUBIN,DIRECT < 0.1 MG/DL (<0.4); BILIRUBIN,TOTAL < 0.2 MG/DL (0.3-1.2); BLOOD UREA NITROGEN 17 MG/DL (9-23); CARBON DIOXIDE LEVEL 22 MMOL/L (20-31); CHLORIDE LEVEL 102 MMOL/L (98-107); CREATININE FOR GFR 0.67 MG/DL (0.55-1.30); GLOMERULAR FILTRATION RATE > 60.0 (>45); GLUCOSE, FASTING 362 MG/DL (74-106); POTASSIUM SERUM 3.8 MMOL/L (3.5-5.1); SODIUM LEVEL 138 MMOL/L (136-145); TOTAL PROTEIN 6.8 G/DL (5.7-8.2)
[2023-05-12 19:34] VITALS: TEMP 99.8; O2SAT 98
== END 2023-05-12 20:19 | disposition left against medical advice (07) ==
LOC: M ED 18:10
DX: Z53.21 Procedure and treatment not carried out due to patient leaving prior to being seen by health care provider (principal)

== ENCOUNTER → 2023-05-17 | Outpatient (CLI) | payer MEDICARE, OTHER ==
[2023-05-17 12:38] LABS: BASO % 0.3 % (0.0-1.0); EOS % 0.4 % (0.0-3.0); HEMATOCRIT 39.8 % (36.0-47.0); HEMOGLOBIN 12.7 g/dl (12.0-15.5); LYMPH # 1.9 10^3/uL (1.5-5.0); LYMPH % 19.4 % (24.0-44.0); MEAN CORPUSCULAR HEMOGLOBIN 28.5 pg (27.0-33.0); MEAN CORPUSCULAR HGB CONC 31.9 g/dl (32.0-36.5); MEAN CORPUSCULAR VOLUME 89.4 fl (80.0-96.0); MONO # 0.5 10^3/uL (0.0-0.8); MONO % 4.9 % (2.0-8.0); NEUTROPHILS # 7.2 10^3/uL (1.5-8.5); NEUTROPHILS % 74.7 % (36.0-66.0); PLATELET COUNT, AUTOMATED 347 10^3/uL (150-450); RED BLOOD COUNT 4.45 10^6/uL (4.00-5.40); WHITE BLOOD COUNT 9.6 10^3/uL (4.0-10.0)
[2023-05-17 12:47] LABS: HEMOGLOBIN A1c 7.3 % (4.0-6.0)
[2023-05-17 13:02] LABS: IRON (FE) 37 UG/DL (50-170)
[2023-05-17 13:03] LABS: PERCENT SATURATION 11.2 % (13.2-45.0); TOTAL IRON BINDING CAPACITY 331 UG/DL (250-425)
[2023-05-17 13:04] LABS: ALBUMIN 4.1 G/DL (3.2-5.2); ALKALINE PHOSPHATASE 139 U/L (46-116); ALT/SGPT 71 U/L (7.0-40); AST/SGOT 40 U/L (<34); BILIRUBIN,TOTAL 0.5 MG/DL (0.3-1.2); BLOOD UREA NITROGEN 15 MG/DL (9-23); CALCIUM LEVEL 9.5 MG/DL (8.3-10.6); CARBON DIOXIDE LEVEL 26 MMOL/L (20-31); CHLORIDE LEVEL 101 MMOL/L (98-107); CHOLESTEROL LEVEL 148 MG/DL (<200); CHOLESTEROL RISK RATIO 3.31 (<5); CREATININE FOR GFR 0.88 MG/DL (0.55-1.30); FREE T4 1.16 NG/DL (0.89-1.76); GLOMERULAR FILTRATION RATE > 60.0 (>45); GLUCOSE, FASTING 171 MG/DL (74-106); HDL CHOLESTEROL 44.6 MG/DL (>40); LDL CHOLESTEROL 57.8 MG/DL (<100); NON-HDL-C 103.4 MG/DL; POTASSIUM SERUM 3.8 MMOL/L (3.5-5.1); SODIUM LEVEL 139 MMOL/L (136-145); THYROID STIMULATING HORMONE 1.228 uIU/ML (0.55-4.78); TOTAL PROTEIN 7.2 G/DL (5.7-8.2); TRIGLYCERIDES LEVEL 228 MG/DL (<150)
== END ==
LOC: M LAB 11:31
PROVIDERS: ATTEND Student in an Organized Health Care Education/Training Program
DX: E11.9 Type 2 diabetes mellitus without complications (principal); E03.9 Hypothyroidism, unspecified; D64.9 Anemia, unspecified

== ENCOUNTER → 2023-08-31 | Outpatient (CLI) | payer MEDICARE, OTHER ==
[2023-08-31 14:34] LABS: BASO % 0.4 % (0.0-1.0); EOS % 0.2 % (0.0-3.0); HEMATOCRIT 38.5 % (36.0-47.0); HEMOGLOBIN 12.3 g/dl (12.0-15.5); LYMPH % 20.1 % (24.0-44.0); MEAN CORPUSCULAR HEMOGLOBIN 29.6 pg (27.0-33.0); MEAN CORPUSCULAR HGB CONC 31.9 g/dl (32.0-36.5); MEAN CORPUSCULAR VOLUME 92.5 fl (80.0-96.0); MONO # 0.5 10^3/uL (0.0-0.8); MONO % 4.6 % (2.0-8.0); NEUTROPHILS # 7.3 10^3/uL (1.5-8.5); NEUTROPHILS % 74.3 % (36.0-66.0); PLATELET COUNT, AUTOMATED 302 10^3/uL (150-450); RED BLOOD COUNT 4.16 10^6/uL (4.00-5.40); WHITE BLOOD COUNT 9.9 10^3/uL (4.0-10.0)
[2023-08-31 14:36] LABS: APPEARANCE, URINE HAZY (CLEAR); BACTERIA, URINE AUTO 1+ (NEGATIVE); BILIRUBIN, URINE AUTO NEGATIVE (NEGATIVE); BLOOD, URINE BLOOD NEGATIVE (NEGATIVE); COLOR, URINE AMBER (YELLOW); GLUCOSE, URINE (UA) AUTO NEGATIVE (NEGATIVE); KETONE, URINE AUTO NEGATIVE (NEGATIVE); LEUKOCYTE ESTERASE, URINE AUTO NEGATIVE (NEGATIVE); MUCUS, URINE SMALL (NEGATIVE); NITRITE, URINE AUTO NEGATIVE (NEGATIVE); PROTEIN, URINE AUTO 1+ mg/dL (NEGATIVE); RBC, URINE AUTO 1 /HPF (0-3); SPECIFIC GRAVITY URINE AUTO 1.025 (1.002-1.035); SQUAMOUS EPITHELIAL CELL UR AU 6 /HPF (0-6); UROBILINOGEN, URINE AUTO 0.2 mg/dL (0.0-2.0); WBC, URINE AUTO 2 /HPF (0-3)
[2023-08-31 15:07] LABS: ALKALINE PHOSPHATASE 96 U/L (46-116); ALT/SGPT 16 U/L (7.0-40); AST/SGOT 11 U/L (<34); BILIRUBIN,TOTAL 0.4 MG/DL (0.3-1.2); BLOOD UREA NITROGEN 13 MG/DL (9-23); CALCIUM LEVEL 9.6 MG/DL (8.3-10.6); CARBON DIOXIDE LEVEL 30 MMOL/L (20-31); CHLORIDE LEVEL 100 MMOL/L (98-107); CREATININE FOR GFR 0.74 MG/DL (0.55-1.30); GLOMERULAR FILTRATION RATE > 60.0 (>45); GLUCOSE, FASTING 172 MG/DL (74-106); MAGNESIUM LEVEL 1.6 MG/DL (1.8-2.4); POTASSIUM SERUM 4.1 MMOL/L (3.5-5.1); SODIUM LEVEL 136 MMOL/L (136-145); TOTAL PROTEIN 6.6 G/DL (5.7-8.2)
[2023-08-31 15:07] LABS: CREATININE, URINE 181.9 MG/DL
[2023-08-31 15:08] LABS: MAU/CREAT RATIO 30.7 MCG/MG (0.0-30.0)
[2023-08-31 15:10] LABS: FREE T4 1.07 NG/DL (0.89-1.76)
[2023-08-31 15:11] LABS: FOLATE 23.6 NG/ML (>5.4); THYROID STIMULATING HORMONE 0.854 uIU/ML (0.55-4.78); VITAMIN B12 LEVEL 1053 PG/ML (211-911)
== END ==
LOC: M LAB 12:51
PROVIDERS: ATTEND Physician Assistant
DX: R41.3 Other amnesia (principal); E11.69 Type 2 diabetes mellitus with other specified complication; K52.9 Noninfective gastroenteritis and colitis, unspecified; F32.9 Major depressive disorder, single episode, unspecified

== ENCOUNTER → 2023-09-02 | Outpatient (CLI) | payer OTHER, MEDICARE ==
[~2023-09-02] MED LIST changes: +GASTROGRAFIN SOLUTION 30ML As Ordered ONE; +ISOVUE-370 76% 100ML VIAL As Ordered ONE
== END ==
LOC: M RAD 07:42
PROVIDERS: ATTEND Physician Assistant
DX: K52.9 Noninfective gastroenteritis and colitis, unspecified (principal); R10.32 Left lower quadrant pain; R10.84 Generalized abdominal pain
CPT/HCPCS: 74178; Q9963; Q9967

== ENCOUNTER → 2023-10-22 | Outpatient (CLI) | payer OTHER, MEDICARE ==
[~2023-10-22] MED LIST changes: -GASTROGRAFIN SOLUTION 30ML As Ordered ONE; -ISOVUE-370 76% 100ML VIAL As Ordered ONE
== END ==
LOC: M RAD 10:21 → M LAB 10:21
PROVIDERS: ATTEND Physician Assistant
DX: S22.080A Wedge compression fracture of T11-T12 vertebra, initial encounter for closed fracture (principal); M51.37 Other intervertebral disc degeneration, lumbosacral region; M43.9 Deforming dorsopathy, unspecified; M16.0 Bilateral primary osteoarthritis of hip; Y93.9 Activity, unspecified; Y92.9 Unspecified place or not applicable; M47.817 Spondylosis without myelopathy or radiculopathy, lumbosacral region; M46.96 Unspecified inflammatory spondylopathy, lumbar region

== ENCOUNTER → 2023-11-02 | Outpatient (CLI) | payer OTHER, MEDICARE ==
[2023-11-02 11:20] LABS: ALBUMIN 3.8 G/DL (3.2-5.2); ALKALINE PHOSPHATASE 148 U/L (46-116); ALT/SGPT 43 U/L (7.0-40); AST/SGOT 19 U/L (<34); BILIRUBIN,TOTAL 0.6 MG/DL (0.3-1.2); BLOOD UREA NITROGEN 13 MG/DL (9-23); CALCIUM LEVEL 10.2 MG/DL (8.3-10.6); CARBON DIOXIDE LEVEL 26 MMOL/L (20-31); CHLORIDE LEVEL 105 MMOL/L (98-107); CREATININE FOR GFR 0.79 MG/DL (0.55-1.30); GLOMERULAR FILTRATION RATE > 60.0 (>45); GLUCOSE, FASTING 165 MG/DL (74-106); MAGNESIUM LEVEL 1.4 MG/DL (1.8-2.4); POTASSIUM SERUM 3.8 MMOL/L (3.5-5.1); SODIUM LEVEL 138 MMOL/L (136-145); TOTAL PROTEIN 6.7 G/DL (5.7-8.2)
== END ==
LOC: M LAB 10:19
PROVIDERS: ATTEND Physician Assistant
DX: E83.42 Hypomagnesemia (principal); E11.9 Type 2 diabetes mellitus without complications

== ENCOUNTER → 2023-11-12 | Outpatient (REF) | payer OTHER, MEDICARE | LOC: M LAB REF 12:57 | PROVIDERS: ATTEND Internal Medicine Gastroenterology | DX: R19.7 Diarrhea, unspecified (principal) ==

== ENCOUNTER → 2023-11-25 | Outpatient (REF) | payer OTHER, MEDICARE | LOC: M LAB REF 10:55 | PROVIDERS: ATTEND Internal Medicine Gastroenterology | DX: R19.7 Diarrhea, unspecified (principal); K86.81 Exocrine pancreatic insufficiency; K52.3 Indeterminate colitis ==

== ENCOUNTER → 2023-12-03 | Outpatient (CLI) | payer OTHER, MEDICARE | LOC: M RAD 15:54 | PROVIDERS: ATTEND Student in an Organized Health Care Education/Training Program | DX: M47.896 Other spondylosis, lumbar region (principal) ==

== ENCOUNTER 2023-12-18 18:48 | Emergency (ER) | payer OTHER, MEDICARE ==
[~2023-12-18] VITALS: Ht 160 cm; Wt 89.3 kg
[~2023-12-18 18:48] MED LIST changes: +AMLO1TAB24 PO; +ATEN25TA PO; +GLIM1TAB84 PO; +LEVO75TA4 PO; +LISI30TA4 PO; +LORA1TAB23 PO; +MAGN400T35 PO; +MULTTAB61 PO; +ONDA-282 SL; -ONDA4TAB6 SL; +TRAZ-252 PO
[2023-12-18] MEDS: NS 1,000 ML IV ONE (19:25)
[2023-12-18] MEDS: ONDANSETRON 4MG 2ML VIAL IV ONE (19:40)
[2023-12-18 19:51] LABS: BASO % 0.2 % (0.0-1.0); EOS % 0.1 % (0.0-3.0); HEMATOCRIT 40.6 % (36.0-47.0); HEMOGLOBIN 13.8 g/dl (12.0-15.5); LYMPH # 1.3 10^3/uL (1.5-5.0); LYMPH % 8.5 % (24.0-44.0); MEAN CORPUSCULAR HEMOGLOBIN 30.7 pg (27.0-33.0); MEAN CORPUSCULAR VOLUME 90.4 fl (80.0-96.0); MONO # 0.5 10^3/uL (0.0-0.8); MONO % 3.3 % (2.0-8.0); NEUTROPHILS # 13.4 10^3/uL (1.5-8.5); NEUTROPHILS % 87.2 % (36.0-66.0); RED BLOOD COUNT 4.49 10^6/uL (4.00-5.40); WHITE BLOOD COUNT 15.4 10^3/uL (4.0-10.0)
[2023-12-18 19:52] LABS: PLATELET COUNT, AUTOMATED 305 10^3/uL (150-450)
[2023-12-18 20:07] LABS: LIPASE 28 U/L (12-53)
[2023-12-18 20:09] LABS: ALKALINE PHOSPHATASE 150 U/L (46-116); ALT/SGPT 45 U/L (7.0-40); AST/SGOT 30 U/L (<34); BILIRUBIN,DIRECT 0.2 MG/DL (<0.4); BILIRUBIN,TOTAL 0.7 MG/DL (0.3-1.2); BLOOD UREA NITROGEN 15 MG/DL (9-23); CALCIUM LEVEL 10.4 MG/DL (8.3-10.6); CARBON DIOXIDE LEVEL 26 MMOL/L (20-31); CHLORIDE LEVEL 101 MMOL/L (98-107); GLOMERULAR FILTRATION RATE > 60.0 (>45); GLUCOSE, FASTING 208 MG/DL (74-106); POTASSIUM SERUM 4.8 MMOL/L (3.5-5.1); SODIUM LEVEL 137 MMOL/L (136-145); TOTAL PROTEIN 7.1 G/DL (5.7-8.2)
[2023-12-18] MEDS: KETOROLAC 30 MG/ML 1ML VIAL IV ONE (20:48)
[2023-12-18] MEDS: MIDAZOLAM INJ 2MG/2ML VIAL IV ONE (20:49)
[2023-12-18] MEDS ORDERED: ISOVUE-370 76% 100ML VIAL As Ordered ONE (21:05)
[2023-12-19] MEDS: NS 500 ML IV ONE (00:10)
[2023-12-19] MEDS ORDERED: LEVO1TAB38 PO (01:32)
[2023-12-19] MEDS ORDERED: ONDA-282 PO (01:34)
[2023-12-19] MEDS: oxyCODONE 5MG TAB PO ONE (01:52)
[2023-12-19] MEDS: LevoFLOXacin 500 MG TABLET PO ONE (01:52)
[2023-12-19 02:11] VITALS: BP 162/78; TEMP 98; O2SAT 99
[2023-12-21] MEDS ORDERED: CYCL5TAB PO (14:23)
[2023-12-21] MEDS ORDERED: PROBCAP14 PO (14:23)
[2023-12-21] MEDS ORDERED: ATOR1TAB21 PO (14:23)
[2023-12-21] MEDS ORDERED: IRON27TA2 PO (14:23)
[2023-12-21] MEDS ORDERED: VITA500C24 PO (14:23)
== END 2023-12-19 02:13 | disposition home or self-care (01) ==
LOC: M ED 18:48
DX: N39.0 Urinary tract infection, site not specified (principal); I49.1 Atrial premature depolarization; E11.9 Type 2 diabetes mellitus without complications; F41.9 Anxiety disorder, unspecified; F32.A Depression, unspecified; E03.9 Hypothyroidism, unspecified; I10 Essential (primary) hypertension; K21.9 Gastro-esophageal reflux disease without esophagitis; Z79.2 Long term (current) use of antibiotics; Z79.84 Long term (current) use of oral hypoglycemic drugs; Z79.811 Long term (current) use of aromatase inhibitors; Z79.899 Other long term (current) drug therapy
CPT/HCPCS: 71045; 74177; 80048; 80076; 81001; 82140; 83605; 83690; 85025; 87086; 87486; 87581; 87633; 87798; 93005; 96361; 96374; 96375; 99284; J1885; J2250; J2405; Q9967

== ENCOUNTER 2023-12-27 10:22 | Day surgery (SDC) | payer OTHER, MEDICARE ==
[~2023-12-27] VITALS: Ht 160 cm; Wt 89.4 kg
[~2023-12-27 10:22] MED LIST changes: +ATOR1TAB21 PO; +CYCL5TAB PO; +IRON27TA2 PO; +LEVO1TAB38 PO; +NS 1,000 ML IV ONE; +ONDA-282 PO; +PROBCAP14 PO; +VITA500C24 PO
[2023-12-27] MEDS ORDERED: ONDANSETRON 4MG 2ML VIAL As Ordered ONE (11:38)
[2023-12-27] MEDS ORDERED: fentaNYL 100 MCG/2 ML INJECTION As Ordered ONE (11:38)
[2023-12-27] MEDS ORDERED: propofoL 500 MG/50 ML VIAL As Ordered ONE (11:38)
[2023-12-27] MEDS ORDERED: LIDOCAINE 2% 100MG/5ML SDV (FOR ANES.) As Ordered ONE (11:38)
[2023-12-27 12:31] VITALS: BP 146/66; O2SAT 97
== END 2023-12-27 12:33 | disposition home or self-care (01) ==
LOC: M OPP 10:22
PROVIDERS: ATTEND Internal Medicine Gastroenterology
DX: K63.5 Polyp of colon (principal); K64.8 Other hemorrhoids; K52.9 Noninfective gastroenteritis and colitis, unspecified; R12 Heartburn; F17.290 Nicotine dependence, other tobacco product, uncomplicated; E11.9 Type 2 diabetes mellitus without complications; Z79.84 Long term (current) use of oral hypoglycemic drugs; Z79.02 Long term (current) use of antithrombotics/antiplatelets; Z79.891 Long term (current) use of opiate analgesic; Z88.1 Allergy status to other antibiotic agents; Z91.040 Latex allergy status
CPT/HCPCS: 43235; 45380; 45385; 88305; J2405; J3010

== ENCOUNTER → 2024-01-06 | Outpatient (CLI) | payer MEDICARE, OTHER ==
[~2024-01-06] MED LIST changes: -NS 1,000 ML IV ONE
[2024-01-06 13:07] LABS: ALBUMIN 3.8 G/DL (3.2-5.2); ALKALINE PHOSPHATASE 166 U/L (46-116); ALT/SGPT 50 U/L (7.0-40); AST/SGOT < 8 U/L (<34); BILIRUBIN,TOTAL 0.3 MG/DL (0.3-1.2); BLOOD UREA NITROGEN 15 MG/DL (9-23); CALCIUM LEVEL 10.6 MG/DL (8.3-10.6); CARBON DIOXIDE LEVEL 24 MMOL/L (20-31); CHLORIDE LEVEL 108 MMOL/L (98-107); CREATININE FOR GFR 0.86 MG/DL (0.55-1.30); GLOMERULAR FILTRATION RATE > 60.0 (>45); GLUCOSE, FASTING 102 MG/DL (74-106); MAGNESIUM LEVEL 1.4 MG/DL (1.8-2.4); POTASSIUM SERUM 4.1 MMOL/L (3.5-5.1); SODIUM LEVEL 140 MMOL/L (136-145); TOTAL PROTEIN 6.6 G/DL (5.7-8.2)
== END ==
LOC: M LAB 11:41
PROVIDERS: ATTEND Physician Assistant
DX: E83.42 Hypomagnesemia (principal); R74.8 Abnormal levels of other serum enzymes

== ENCOUNTER 2024-05-02 10:16 | Emergency (ER) | payer OTHER, MEDICARE ==
[~2024-05-02] VITALS: Ht 160 cm; Wt 85.0 kg
[2024-05-02] MEDS: LORazepam 2 MG/ML 1ML VIAL IV STA (11:23)
[2024-05-02 11:49] LABS: BASO % 0.2 % (0.0-1.0); HEMOGLOBIN 12.3 g/dl (12.0-15.5); LYMPH # 0.8 10^3/uL (1.5-5.0); LYMPH % 6.2 % (24.0-44.0); MEAN CORPUSCULAR HEMOGLOBIN 32.2 pg (27.0-33.0); MEAN CORPUSCULAR HGB CONC 33.2 g/dl (32.0-36.5); MEAN CORPUSCULAR VOLUME 96.9 fl (80.0-96.0); MONO # 0.4 10^3/uL (0.0-0.8); NEUTROPHILS # 11.4 10^3/uL (1.5-8.5); NEUTROPHILS % 90.3 % (36.0-66.0); PLATELET COUNT, AUTOMATED 361 10^3/uL (150-450); RED BLOOD COUNT 3.82 10^6/uL (4.00-5.40); WHITE BLOOD COUNT 12.6 10^3/uL (4.0-10.0)
[2024-05-02 12:09] LABS: ALBUMIN 4.3 G/DL (3.2-5.2); BILIRUBIN,DIRECT 0.2 MG/DL (<0.4); BILIRUBIN,TOTAL 0.6 MG/DL (0.3-1.2); CALCIUM LEVEL 11.6 MG/DL (8.3-10.6); CREATININE FOR GFR 1.21 MG/DL (0.55-1.30); GLOMERULAR FILTRATION RATE 47.2 (>45); POTASSIUM SERUM 4.9 MMOL/L (3.5-5.1); TOTAL PROTEIN 7.5 G/DL (5.7-8.2)
[2024-05-02] MEDS ORDERED: JARD1TAB PO (17:16)
[2024-05-02 18:15] VITALS: BP 181/81; TEMP 97.3; O2SAT 95
== END 2024-05-02 18:30 | disposition home or self-care (01) ==
LOC: M ED 10:16
DX: F41.9 Anxiety disorder, unspecified (principal); I10 Essential (primary) hypertension; R51.9 Headache, unspecified; K76.0 Fatty (change of) liver, not elsewhere classified; E11.9 Type 2 diabetes mellitus without complications; F32.A Depression, unspecified; Z79.899 Other long term (current) drug therapy; Z79.811 Long term (current) use of aromatase inhibitors; Z79.1 Long term (current) use of non-steroidal anti-inflammatories (NSAID); Z79.02 Long term (current) use of antithrombotics/antiplatelets; Z88.8 Allergy status to other drugs, medicaments and biological substances; Z91.040 Latex allergy status
CPT/HCPCS: 80048; 80076; 83690; 85025; 87507; 96374; 99284; J2060

== ENCOUNTER 2024-05-08 10:54 | Inpatient (IN) | payer MEDICARE, OTHER ==
[~2024-05-08] VITALS: Ht 160 cm; Wt 83.0 kg
[~2024-05-08 10:54] MED LIST changes: +JARD1TAB PO
[2024-05-08 14:04] LABS: BASO % 0.3 % (0.0-1.0); EOS # 0.2 10^3/uL (0.0-0.5); EOS % 2.3 % (0.0-3.0); HEMOGLOBIN 11.1 g/dl (12.0-15.5); LYMPH # 1.3 10^3/uL (1.5-5.0); LYMPH % 12.3 % (24.0-44.0); MEAN CORPUSCULAR HEMOGLOBIN 32.4 pg (27.0-33.0); MEAN CORPUSCULAR HGB CONC 32.6 g/dl (32.0-36.5); MEAN CORPUSCULAR VOLUME 99.1 fl (80.0-96.0); MONO # 0.7 10^3/uL (0.0-0.8); MONO % 6.3 % (2.0-8.0); NEUTROPHILS # 8.2 10^3/uL (1.5-8.5); NEUTROPHILS % 78.4 % (36.0-66.0); PLATELET COUNT, AUTOMATED 285 10^3/uL (150-450); RED BLOOD COUNT 3.43 10^6/uL (4.00-5.40); WHITE BLOOD COUNT 10.4 10^3/uL (4.0-10.0)
[2024-05-08 14:37] LABS: ETHYL ALCOHOL (ETHANOL) 0.004 % (0.000-0.010)
[2024-05-08 14:39] LABS: SALICYLATE LEVEL < 3.0 MG/DL (<30)
[2024-05-08 14:46] LABS: AMPHETAMINES LEVEL URINE NEGATIVE (NEGATIVE); BARBITURATES URINE NEGATIVE (NEGATIVE); BENZODIAZEPINES URINE NEGATIVE (NEGATIVE); COCAINE METABOLITE URINE NEGATIVE (NEGATIVE); METHADONE URINE NEGATIVE (NEGATIVE); PHENCYCLIDINE URINE NEGATIVE (NEGATIVE)
[2024-05-08 14:47] LABS: CANNABINOIDS URINE POSITIVE (NEGATIVE); OPIATES URINE POSITIVE (NEGATIVE)
[2024-05-08 14:56] LABS: BLOOD UREA NITROGEN 56 MG/DL (9-23); CALCIUM LEVEL 10.5 MG/DL (8.3-10.6); CARBON DIOXIDE LEVEL 22 MMOL/L (20-31); CHLORIDE LEVEL 112 MMOL/L (98-107); FREE T4 1.22 NG/DL (0.89-1.76); GLOMERULAR FILTRATION RATE 19.5 (>45); GLUCOSE, FASTING 88 MG/DL (74-106); POTASSIUM SERUM 5.4 MMOL/L (3.5-5.1); SODIUM LEVEL 140 MMOL/L (136-145); THYROID STIMULATING HORMONE 0.127 uIU/ML (0.55-4.78)
[2024-05-08] MEDS ORDERED: ACET650T15 PO (17:01)
[2024-05-08] MEDS ORDERED: CREO3600 PO (17:01)
[2024-05-08] MEDS ORDERED: MAGN400C PO (17:01)
[2024-05-08] MEDS ORDERED: HOME MED LIST COMPLETE! XX SCH (17:05)
[2024-05-08] MEDS: PATIROMER SORBITEX CALCIUM 8.4 GM POWDER PACKET (VELTASSA) PO ONE ×2 (17:25→19:53)
[2024-05-08] MEDS ORDERED: GLUCAGON INJ 1MG VIAL SC PRN (17:30)
[2024-05-08] MEDS ORDERED: DEXTROSE 50% 50ML SYRINGE IV PRN (17:30)
[2024-05-08] MEDS ORDERED: GLUCOSE 4 GM CHEW PO PRN (17:30)
[2024-05-08] MEDS: INSULIN LISPRO (NovoLOG) PER UNIT SC SCH ×2 (17:30→21:00)
[2024-05-08 17:54] LABS: INR 1.01
[2024-05-08] MEDS: PERCOCET 5MG/325MG TAB PO PRN (18:03)
[2024-05-08] MEDS: LevoFLOXacin IV 500 MG in IV 1 EA IV ONE (18:03)
[2024-05-08] MEDS: NS 1,000 ML IV SCH (18:04)
[2024-05-08 18:13] LABS: ALBUMIN 3.7 G/DL (3.2-5.2); BILIRUBIN,DIRECT 0.1 MG/DL (<0.4); BILIRUBIN,TOTAL 0.4 MG/DL (0.3-1.2); TOTAL PROTEIN 6.6 G/DL (5.7-8.2)
[2024-05-08 18:18] LABS: TOTAL T3 106.7 NG/DL (60.0-181.0)
[2024-05-08 18:28] VITALS: BP 137/70; TEMP 98.6; O2SAT 90
[2024-05-08 18:29] VITALS: BP_SYST 100; BP_SYST 119; BP_SYST 137; BP_DIAS 68; BP_DIAS 70
[2024-05-08 19:57] VITALS: BP 102/71; TEMP 98.1; O2SAT 98
[2024-05-08] MEDS: ACETAMINOPHEN 325 MG TAB PO ONE (20:35)
[2024-05-08] MEDS ORDERED: MAGNESIUM OXIDE 400MG TAB (MAG-OX) PO SCH (21:00)
[2024-05-08 21:19] LABS: CALCIUM LEVEL 10.6 MG/DL (8.3-10.6); CREATININE FOR GFR 2.24 MG/DL (0.55-1.30); GLOMERULAR FILTRATION RATE 23.2 (>45); POTASSIUM SERUM 4.5 MMOL/L (3.5-5.1)
[2024-05-08] MEDS: LIDOCAINE 5% (LIDODERM) PATCH TD SCH (22:27)
[2024-05-08] MEDS: DULoxetine 30MG CAPSULE (CYMBALTA) PO SCH (22:28)
[2024-05-08] MEDS: oxyCODONE 5MG TAB PO PRN (22:29)
[2024-05-08] MEDS: FAMOTIDINE 20 MG TAB PO SCH (22:29)
[2024-05-08] MEDS: HEPARIN SOD (PORCINE) 5000UNITS/ML 1ML VIAL/SYRINGE SQ SCH (22:29)
[2024-05-09] MEDS: ONDANSETRON 4MG 2ML VIAL IV ONE (03:07)
[2024-05-09 03:13] VITALS: BP 102/71; TEMP 99.1; O2SAT 96
[2024-05-09] MEDS: LEVOTHYROXINE 75MCG TABLET (0.075MG) PO SCH (05:36)
[2024-05-09 05:57] LABS: HEMATOCRIT 33.1 % (36.0-47.0); HEMOGLOBIN 10.7 g/dl (12.0-15.5); MEAN CORPUSCULAR HEMOGLOBIN 31.8 pg (27.0-33.0); MEAN CORPUSCULAR HGB CONC 32.3 g/dl (32.0-36.5); MEAN CORPUSCULAR VOLUME 98.2 fl (80.0-96.0); PLATELET COUNT, AUTOMATED 288 10^3/uL (150-450); RED BLOOD COUNT 3.37 10^6/uL (4.00-5.40); WHITE BLOOD COUNT 7.8 10^3/uL (4.0-10.0)
[2024-05-09 06:22] LABS: ALBUMIN 3.5 G/DL (3.2-5.2); BILIRUBIN,TOTAL 0.6 MG/DL (0.3-1.2); CREATININE FOR GFR 1.43 MG/DL (0.55-1.30); POTASSIUM SERUM 4.8 MMOL/L (3.5-5.1); TOTAL PROTEIN 6.5 G/DL (5.7-8.2)
[2024-05-09] MEDS: ATORVASTATIN 20 MG TAB PO SCH (08:00)
[2024-05-09] MEDS: ACETAMINOPHEN 325 MG TAB PO PRN (08:00)
[2024-05-09] MEDS: CYANOCOBALAMIN 500 MCG TAB PO SCH (08:00)
[2024-05-09] MEDS: LACTULOSE 20GM/30ML SYRUP UDC PO SCH (08:00)
[2024-05-09] MEDS: PANTOPRAZOLE 40MG TAB (PROTONIX) PO SCH (08:00)
[2024-05-09 09:27] LABS: HEPATITIS B SURFACE ANTIGEN NEGATIVE (NEGATIVE)
[2024-05-09 09:47] LABS: HEPATITIS B CORE ANTIBODY IGM NEGATIVE (NEGATIVE); HEPATITIS C VIRUS ABY INDEX 0.03 INDEX (<0.8)
[2024-05-09] MEDS: ONDANSETRON 4MG TAB PO ONE (10:57)
[2024-05-09 12:00] VITALS: BP 114/57; TEMP 98.1; O2SAT 100
[2024-05-09] MEDS: LORazepam 0.5 MG TAB PO ONE (13:20)
[2024-05-09] MEDS: MORPHINE 2 MG/ML 1ML VIAL IV ONE (16:17)
[2024-05-09] MEDS: ONDANSETRON 4MG ORAL DISINTEGRATING TAB PO PRN (17:36)
[2024-05-09 20:00] VITALS: BP 150/68; TEMP 98.1; O2SAT 97
[2024-05-09] MEDS: LORazepam 2 MG/ML 1ML VIAL IV PRN (20:16)
[2024-05-09] MEDS: oxyCODONE 5MG TAB PO PRN (21:46)
[2024-05-10 04:00] VITALS: BP 166/66; TEMP 98.1; O2SAT 97
[2024-05-10 06:20] VITALS: BP 160/62; TEMP 98.2; O2SAT 97
[2024-05-10 06:25] LABS: BASO % 0.4 % (0.0-1.0); EOS % 0.4 % (0.0-3.0); HEMATOCRIT 31.9 % (36.0-47.0); HEMOGLOBIN 10.2 g/dl (12.0-15.5); LYMPH # 1.3 10^3/uL (1.5-5.0); LYMPH % 17.7 % (24.0-44.0); MEAN CORPUSCULAR HEMOGLOBIN 31.4 pg (27.0-33.0); MEAN CORPUSCULAR VOLUME 98.2 fl (80.0-96.0); MONO # 0.5 10^3/uL (0.0-0.8); MONO % 6.9 % (2.0-8.0); NEUTROPHILS # 5.2 10^3/uL (1.5-8.5); PLATELET COUNT, AUTOMATED 276 10^3/uL (150-450); RED BLOOD COUNT 3.25 10^6/uL (4.00-5.40); WHITE BLOOD COUNT 7.1 10^3/uL (4.0-10.0)
[2024-05-10 06:39] LABS: BLOOD UREA NITROGEN 18 MG/DL (9-23); CALCIUM LEVEL 9.9 MG/DL (8.3-10.6); CARBON DIOXIDE LEVEL 20 MMOL/L (20-31); CHLORIDE LEVEL 115 MMOL/L (98-107); CREATININE FOR GFR 0.98 MG/DL (0.55-1.30); GLOMERULAR FILTRATION RATE > 60.0 (>45); GLUCOSE, FASTING 203 MG/DL (74-106); POTASSIUM SERUM 4.8 MMOL/L (3.5-5.1); SODIUM LEVEL 142 MMOL/L (136-145)
[2024-05-10] MEDS: MORPHINE 4 MG/ML 1ML VIAL IV STA (07:06)
[2024-05-10] MEDS: LORazepam 1 MG TAB PO SCH (10:47)
[2024-05-10] MEDS: amLODIPine 5 MG TAB PO SCH (10:48)
[2024-05-10] MEDS: atenoloL 25 MG TAB PO SCH (10:48)
[2024-05-10 12:00] VITALS: BP 158/63; TEMP 97.9; O2SAT 97
[2024-05-10] MEDS: LevoFLOXacin IV 250 MG in IV 1 EA IV SCH (17:51)
[2024-05-10 20:00] VITALS: BP 157/61; TEMP 97.9; O2SAT 97
[2024-05-11 03:32] VITALS: BP 160/60
[2024-05-11 05:44] LABS: BASO # 0.1 10^3/uL (0.0-0.2); BASO % 0.5 % (0.0-1.0); EOS % 0.3 % (0.0-3.0); HEMATOCRIT 32.7 % (36.0-47.0); HEMOGLOBIN 10.2 g/dl (12.0-15.5); LYMPH # 1.5 10^3/uL (1.5-5.0); LYMPH % 15.9 % (24.0-44.0); MEAN CORPUSCULAR HEMOGLOBIN 30.8 pg (27.0-33.0); MEAN CORPUSCULAR HGB CONC 31.2 g/dl (32.0-36.5); MEAN CORPUSCULAR VOLUME 98.8 fl (80.0-96.0); MONO # 0.7 10^3/uL (0.0-0.8); MONO % 7.2 % (2.0-8.0); NEUTROPHILS # 7.2 10^3/uL (1.5-8.5); NEUTROPHILS % 75.1 % (36.0-66.0); PLATELET COUNT, AUTOMATED 299 10^3/uL (150-450); RED BLOOD COUNT 3.31 10^6/uL (4.00-5.40); WHITE BLOOD COUNT 9.6 10^3/uL (4.0-10.0)
[2024-05-11 06:08] LABS: CALCIUM LEVEL 10.6 MG/DL (8.3-10.6); CREATININE FOR GFR 1.01 MG/DL (0.55-1.30); GLOMERULAR FILTRATION RATE 58.2 (>45); POTASSIUM SERUM 4.6 MMOL/L (3.5-5.1)
[2024-05-11] MEDS ORDERED: ONDANSETRON 4MG 2ML VIAL IV SCH (11:00)
[2024-05-11 12:00] VITALS: BP 157/60; TEMP 97.2; O2SAT 96
[2024-05-11] MEDS: CREON-24 CAPSULE (PANCRELIPASE) PO SCH (13:08)
[2024-05-11] MEDS: LIDOCAINE 5% (LIDODERM) PATCH TD PRN (17:18)
[2024-05-11 17:32] VITALS: TEMP 97.2
[2024-05-11 17:33] VITALS: TEMP 98.6
[2024-05-11 19:57] VITALS: BP 157/66; TEMP 96.8; O2SAT 97
[2024-05-11] MEDS: RAMELTEON 8 MG TAB (ROZEREM) PO PRN (20:15)
[2024-05-12] MEDS: ONDANSETRON 4MG 2ML VIAL IV PRN (00:45)
[2024-05-12 04:00] VITALS: BP 156/58; TEMP 97.4; O2SAT 97
[2024-05-12 08:41] LABS: BASO % 0.4 % (0.0-1.0); EOS % 0.1 % (0.0-3.0); HEMATOCRIT 33.9 % (36.0-47.0); HEMOGLOBIN 11.2 g/dl (12.0-15.5); LYMPH # 1.1 10^3/uL (1.5-5.0); LYMPH % 10.5 % (24.0-44.0); MEAN CORPUSCULAR HEMOGLOBIN 31.2 pg (27.0-33.0); MEAN CORPUSCULAR VOLUME 94.4 fl (80.0-96.0); MONO # 0.6 10^3/uL (0.0-0.8); MONO % 5.4 % (2.0-8.0); NEUTROPHILS # 8.5 10^3/uL (1.5-8.5); NEUTROPHILS % 82.8 % (36.0-66.0); PLATELET COUNT, AUTOMATED 304 10^3/uL (150-450); RED BLOOD COUNT 3.59 10^6/uL (4.00-5.40); WHITE BLOOD COUNT 10.3 10^3/uL (4.0-10.0)
[2024-05-12 09:05] LABS: BLOOD UREA NITROGEN 13 MG/DL (9-23); CALCIUM LEVEL 10.8 MG/DL (8.3-10.6); CARBON DIOXIDE LEVEL 24 MMOL/L (20-31); CHLORIDE LEVEL 107 MMOL/L (98-107); CREATININE FOR GFR 0.98 MG/DL (0.55-1.30); GLOMERULAR FILTRATION RATE > 60.0 (>45); GLUCOSE, FASTING 196 MG/DL (74-106); POTASSIUM SERUM 3.9 MMOL/L (3.5-5.1); SODIUM LEVEL 139 MMOL/L (136-145)
[2024-05-12] MEDS: PREGABALIN 25 MG CAP (LYRICA) PO SCH (11:11)
[2024-05-12 12:00] VITALS: BP 149/77; TEMP 98.4; O2SAT 97
[2024-05-12] MEDS: ACETAMINOPHEN 500 MG TAB PO SCH (15:46)
[2024-05-12 20:00] VITALS: BP 152/70; TEMP 98.4; O2SAT 96
[2024-05-12] MEDS: MIRTAZAPINE 7.5MG PER 1/2 TABLET PO SCH (20:42)
[2024-05-13 04:00] VITALS: BP 150/62; TEMP 98.4; O2SAT 97
[2024-05-13] MEDS: ONDANSETRON 4MG ORAL DISINTEGRATING TAB PO PRN (04:20)
[2024-05-13 06:55] LABS: BASO # 0.1 10^3/uL (0.0-0.2); BASO % 0.5 % (0.0-1.0); EOS # 0.1 10^3/uL (0.0-0.5); EOS % 0.5 % (0.0-3.0); HEMOGLOBIN 11.7 g/dl (12.0-15.5); LYMPH # 1.9 10^3/uL (1.5-5.0); LYMPH % 20.4 % (24.0-44.0); MEAN CORPUSCULAR HEMOGLOBIN 31.4 pg (27.0-33.0); MEAN CORPUSCULAR HGB CONC 33.4 g/dl (32.0-36.5); MEAN CORPUSCULAR VOLUME 93.8 fl (80.0-96.0); MONO # 0.8 10^3/uL (0.0-0.8); MONO % 8.4 % (2.0-8.0); NEUTROPHILS # 6.5 10^3/uL (1.5-8.5); NEUTROPHILS % 69.4 % (36.0-66.0); PLATELET COUNT, AUTOMATED 329 10^3/uL (150-450); RED BLOOD COUNT 3.73 10^6/uL (4.00-5.40); WHITE BLOOD COUNT 9.3 10^3/uL (4.0-10.0)
[2024-05-13 07:18] LABS: CALCIUM LEVEL 10.6 MG/DL (8.3-10.6); CREATININE FOR GFR 1.04 MG/DL (0.55-1.30); GLOMERULAR FILTRATION RATE 56.3 (>45); POTASSIUM SERUM 3.9 MMOL/L (3.5-5.1)
[2024-05-13 08:59] VITALS: BP 133/72
[2024-05-13 12:00] VITALS: BP 134/68; TEMP 98.1; O2SAT 97
== END 2024-05-13 16:25 | disposition left against medical advice (07) | DRG 683 ==
LOC: M ED 10:54 → M ED INP 16:31 → M MSPAV 17:58
PROVIDERS: ADMIT Internal Medicine; ATTEND Internal Medicine
DX: N17.9 Acute kidney failure, unspecified (principal); K50.90 Crohn's disease, unspecified, without complications; N39.0 Urinary tract infection, site not specified; D50.9 Iron deficiency anemia, unspecified; E11.42 Type 2 diabetes mellitus with diabetic polyneuropathy; I12.9 Hypertensive chronic kidney disease with stage 1 through stage 4 chronic kidney disease, or unspecified chronic kidney disease; K21.9 Gastro-esophageal reflux disease without esophagitis; R26.89 Other abnormalities of gait and mobility; R29.6 Repeated falls; F41.9 Anxiety disorder, unspecified; E03.9 Hypothyroidism, unspecified; E78.5 Hyperlipidemia, unspecified; R07.89 Other chest pain; M79.7 Fibromyalgia; Z87.891 Personal history of nicotine dependence; N18.9 Chronic kidney disease, unspecified; E11.22 Type 2 diabetes mellitus with diabetic chronic kidney disease; F01.50 Vascular dementia, unspecified severity, without behavioral disturbance, psychotic disturbance, mood disturbance, and anxiety; G89.29 Other chronic pain; F32.A Depression, unspecified; Z90.49 Acquired absence of other specified parts of digestive tract; Z90.79 Acquired absence of other genital organ(s); E87.5 Hyperkalemia; I44.0 Atrioventricular block, first degree; E83.41 Hypermagnesemia; S92.515A Nondisplaced fracture of proximal phalanx of left lesser toe(s), initial encounter for closed fracture; W19.XXXA Unspecified fall, initial encounter; Y92.009 Unspecified place in unspecified non-institutional (private) residence as the place of occurrence of the external cause; E66.9 Obesity, unspecified; Z79.890 Hormone replacement therapy; Z79.899 Other long term (current) drug therapy; Z88.1 Allergy status to other antibiotic agents; Z91.040 Latex allergy status

== ENCOUNTER → 2024-08-01 | Outpatient (CLI) | payer MEDICAID, MEDICARE ==
[~2024-08-01] MED LIST changes: +ACET650T15 PO; +CREO3600 PO; -CYCL5TAB PO; +CYCL5TAB4 PO; +MAGN400C PO
== END ==
LOC: M LAB 11:40
PROVIDERS: ATTEND Nurse Practitioner Acute Care
DX: R60.0 Localized edema (principal)

== ENCOUNTER → 2024-08-01 | Outpatient (CLI) | payer MEDICAID, MEDICARE ==
[2024-08-01 12:19] LABS: PLATELET COUNT, AUTOMATED 193 10^3/uL (150-450)
[2024-08-01 12:37] LABS: INR 0.96; PARTIAL THROMBOPLASTIN TIME 21.2 SECONDS (24.8-34.2); PROTHROMBIN TIME 13.1 SECONDS (12.5-14.5)
== END ==
LOC: M LAB 11:44
PROVIDERS: ATTEND Orthopaedic Surgery
DX: Z01.818 Encounter for other preprocedural examination (principal)

== ENCOUNTER → 2024-08-09 | Outpatient (CLI) | payer MEDICARE ==
[2024-08-09 12:03] LABS: CALCIUM LEVEL 10.8 MG/DL (8.3-10.6); CREATININE FOR GFR 1.62 MG/DL (0.55-1.30); GLOMERULAR FILTRATION RATE 33.7 (>45); POTASSIUM SERUM 4.7 MMOL/L (3.5-5.1)
== END ==
LOC: M LAB 10:58
PROVIDERS: ATTEND Nurse Practitioner Acute Care
DX: R60.0 Localized edema (principal)

== ENCOUNTER → 2024-08-16 | Outpatient (REF) | payer MEDICARE, OTHER, MEDICAID ==
[2024-08-16 17:09] LABS: APPEARANCE, URINE HAZY (CLEAR); BACTERIA, URINE AUTO 1+ (NEGATIVE); BILIRUBIN, URINE AUTO NEGATIVE (NEGATIVE); BLOOD, URINE BLOOD NEGATIVE (NEGATIVE); COLOR, URINE YELLOW (YELLOW); GLUCOSE, URINE (UA) AUTO 3+ mg/dL (NEGATIVE); KETONE, URINE AUTO NEGATIVE (NEGATIVE); LEUKOCYTE ESTERASE, URINE AUTO 2+ (NEGATIVE); NITRITE, URINE AUTO NEGATIVE (NEGATIVE); PROTEIN, URINE AUTO NEGATIVE (NEGATIVE); RBC, URINE AUTO 1 /HPF (0-3); SPECIFIC GRAVITY URINE AUTO 1.012 (1.002-1.035); SQUAMOUS EPITHELIAL CELL UR AU 2 /HPF (0-6); UROBILINOGEN, URINE AUTO 0.2 mg/dL (0.0-2.0); WBC, URINE AUTO 37 /HPF (0-3)
[2024-08-16 17:27] LABS: HEMOGLOBIN A1c 8.7 % (4.0-6.0)
[2024-08-16 17:40] LABS: CREATININE, URINE 56.3 MG/DL
[2024-08-16 17:41] LABS: MAU/CREAT RATIO 30.1 MCG/MG (0.0-30.0)
[2024-08-16 17:42] LABS: ALBUMIN 3.6 G/DL (3.2-5.2); BLOOD UREA NITROGEN 40 MG/DL (9-23); CALCIUM LEVEL 10.3 MG/DL (8.3-10.6); CARBON DIOXIDE LEVEL 28 MMOL/L (20-31); CHLORIDE LEVEL 97 MMOL/L (98-107); CHOLESTEROL LEVEL 266 MG/DL (<200); CHOLESTEROL RISK RATIO 4.36 (<5); CREATININE FOR GFR 1.95 MG/DL (0.55-1.30); GLOMERULAR FILTRATION RATE 27.2 (>45); GLUCOSE, FASTING 184 MG/DL (74-106); PHOSPHORUS LEVEL 3.6 MG/DL (2.4-5.1); POTASSIUM SERUM 4.8 MMOL/L (3.5-5.1); SODIUM LEVEL 135 MMOL/L (136-145); TRIGLYCERIDES LEVEL 463 MG/DL (<150)
[2024-08-16 17:43] LABS: THYROID STIMULATING HORMONE 6.085 uIU/ML (0.55-4.78)
== END ==
LOC: M SFHCLERA 13:24
PROVIDERS: ATTEND Family Medicine
DX: N17.9 Acute kidney failure, unspecified (principal); R79.89 Other specified abnormal findings of blood chemistry; G89.29 Other chronic pain; E03.9 Hypothyroidism, unspecified; E78.2 Mixed hyperlipidemia; E11.9 Type 2 diabetes mellitus without complications

== ENCOUNTER → 2024-10-03 | Outpatient (REF) | payer MEDICARE, OTHER, MEDICAID ==
[2024-10-03 18:32] LABS: MAGNESIUM LEVEL 1.9 MG/DL (1.8-2.4)
[2024-10-03 18:35] LABS: TOTAL 25(OH) VITAMIN D 52.6 NG/ML (20.0-100.0)
[2024-10-06 11:35] LABS: ANA PATTERN Nuclear, Homogeneous (NEGATIVE); ANA SCREEN, IFA POSITIVE (NEGATIVE); ANA TITER 1:40 titer (<1:40)
== END ==
LOC: M SFHCRHEU 12:32
PROVIDERS: ATTEND Internal Medicine
DX: E55.9 Vitamin D deficiency, unspecified (principal); R79.0 Abnormal level of blood mineral; R76.8 Other specified abnormal immunological findings in serum

== ENCOUNTER → 2024-10-09 | Outpatient (CLI) | payer MEDICAID, MEDICARE, OTHER | LOC: M WHC 10:47 | PROVIDERS: ATTEND Internal Medicine | DX: M85.89 Other specified disorders of bone density and structure, multiple sites (principal) ==

== ENCOUNTER → 2024-11-22 | Outpatient (CLI) | payer MEDICARE ==
[2024-11-22 10:47] LABS: INR 0.81; PROTHROMBIN TIME 11.5 SECONDS (12.5-14.5)
[2024-11-22 11:20] LABS: ALBUMIN 3.9 G/DL (3.2-5.2); ALKALINE PHOSPHATASE 116 U/L (35-104); ALT/SGPT 20 U/L (7.0-40); AST/SGOT 8 U/L (<34); BILIRUBIN,DIRECT < 0.1 MG/DL (<0.4); BILIRUBIN,TOTAL 0.2 MG/DL (0.3-1.2); IMMUNOGLOBULIN A 58.2 MG/DL (40-350); IMMUNOGLOBULIN G 588 MG/DL (650-1600); IMMUNOGLOBULIN M 84.3 MG/DL (50-300); IRON (FE) 31 UG/DL (50-170); PERCENT SATURATION 10.2 % (13.2-45.0); TOTAL IRON BINDING CAPACITY 305 UG/DL (250-425); TOTAL PROTEIN 6.5 G/DL (5.7-8.2)
[2024-11-22 11:37] LABS: CA19-9 TUMOR MARKER,CARBOHYDRA 136.7 U/ML (<35.0)
[2024-11-24 03:13] LABS: TISSUE TRANSGLUTAMINASE IgA < 1.0 U/mL (<15.0)
[2024-11-24 15:32] LABS: ANA SCREEN, IFA NEGATIVE (NEGATIVE)
[2024-11-26 16:02] LABS: LIVER-KIDNEY MICROSOMAL ABY <= 20.0 U (<=20.0)
[2024-11-27 23:57] LABS: MITOCHONDRIAL M2 ANTIBODY < 20.0 U (<=20.0)
[2024-11-28 13:46] LABS: ANCA SCREEN Negative (Negative)
== END ==
LOC: M LAB 09:29
PROVIDERS: ATTEND Internal Medicine Gastroenterology
DX: R74.01 Elevation of levels of liver transaminase levels (principal)

== ENCOUNTER → 2024-11-24 | Outpatient (CLI) | payer MEDICARE ==
[~2024-11-24] MED LIST changes: +GADOXETATE DISODIUM 2.5MMOL/10ML VIAL (EOVIST) As Ordered ONE
== END ==
LOC: M RAD 16:06
PROVIDERS: ATTEND Internal Medicine Gastroenterology
DX: R93.2 Abnormal findings on diagnostic imaging of liver and biliary tract (principal); R93.5 Abnormal findings on diagnostic imaging of other abdominal regions, including retroperitoneum; K86.81 Exocrine pancreatic insufficiency
CPT/HCPCS: 74183; A9581

== ENCOUNTER → 2025-01-21 | Outpatient (CLI) | payer MEDICARE ==
[~2025-01-21] MED LIST changes: +ASPE4PAD TOP; -GADOXETATE DISODIUM 2.5MMOL/10ML VIAL (EOVIST) As Ordered ONE; +INDO50CA91 PO; +LEVO100T5 PO
[2025-01-22 14:37] LABS: CALCIUM LEVEL 11.4 MG/DL (8.3-10.6); CARBON DIOXIDE LEVEL 22.8 MMOL/L (20-31); CHLORIDE LEVEL 106.0 MMOL/L (98-107); CREATININE FOR GFR 0.88 MG/DL (0.55-1.30); GLOMERULAR FILTRATION RATE 72.0 (>45); POTASSIUM SERUM 4.5 MMOL/L (3.5-5.1); SODIUM LEVEL 140.0 MMOL/L (136-145)
== END ==
LOC: M LAB 12:43
PROVIDERS: ATTEND Internal Medicine Nephrology
DX: I12.9 Hypertensive chronic kidney disease with stage 1 through stage 4 chronic kidney disease, or unspecified chronic kidney disease (principal); E83.52 Hypercalcemia; E13.9 Other specified diabetes mellitus without complications

== ENCOUNTER → 2025-02-08 | Outpatient (CLI) | payer MEDICAID, MEDICARE ==
[~2025-02-08] MED LIST changes: +ACET-1515 PO; -ACET650T15 PO
[2025-02-08 13:48] LABS: PLATELET COUNT, AUTOMATED 338 10^3/uL (150-450)
[2025-02-08 14:11] LABS: CALCIUM LEVEL 10.5 MG/DL (8.3-10.6); CARBON DIOXIDE LEVEL 28.0 MMOL/L (20-31); CHLORIDE LEVEL 99.0 MMOL/L (98-107); CREATININE FOR GFR 0.99 MG/DL (0.55-1.30); GLOMERULAR FILTRATION RATE 62.1 (>45); PHOSPHORUS LEVEL 3.6 MG/DL (2.4-5.1); POTASSIUM SERUM 4.5 MMOL/L (3.5-5.1); PTH INTACT 111.0 PG/ML (18.5-88.0); SODIUM LEVEL 138.0 MMOL/L (136-145); TOTAL 25(OH) VITAMIN D 45.5 NG/ML (20.0-100.0)
[2025-02-08 14:12] LABS: FREE T4 1.69 NG/DL (0.89-1.76)
== END ==
LOC: M LAB 12:46
PROVIDERS: ATTEND Internal Medicine Nephrology
DX: E83.52 Hypercalcemia (principal); R80.9 Proteinuria, unspecified

== ENCOUNTER → 2025-02-08 | Outpatient (CLI) | payer MEDICAID, MEDICARE ==
[2025-02-08 13:56] LABS: CALCIUM LEVEL 10.6 MG/DL (8.3-10.6); CARBON DIOXIDE LEVEL 28.0 MMOL/L (20-31); CHLORIDE LEVEL 100.0 MMOL/L (98-107); CREATININE FOR GFR 0.98 MG/DL (0.55-1.30); GLOMERULAR FILTRATION RATE 62.9 (>45); MAGNESIUM LEVEL 2.2 MG/DL (1.8-2.4); POTASSIUM SERUM 4.6 MMOL/L (3.5-5.1); SODIUM LEVEL 139.0 MMOL/L (136-145)
[2025-02-08 14:01] LABS: TOTAL 25(OH) VITAMIN D 49.9 NG/ML (20.0-100.0)
== END ==
LOC: M LAB 12:40
PROVIDERS: ATTEND Internal Medicine
DX: E55.9 Vitamin D deficiency, unspecified (principal); R79.0 Abnormal level of blood mineral; M81.0 Age-related osteoporosis without current pathological fracture

== ENCOUNTER → 2025-02-09 | Outpatient (REF) | payer MEDICARE ==
[2025-02-09 11:24] LABS: APPEARANCE, URINE CLEAR (CLEAR); BACTERIA, URINE AUTO NEGATIVE (NEGATIVE); BILIRUBIN, URINE AUTO NEGATIVE (NEGATIVE); BLOOD, URINE BLOOD NEGATIVE (NEGATIVE); GLUCOSE, URINE (UA) AUTO 3+ mg/dL (NEGATIVE); KETONE, URINE AUTO NEGATIVE (NEGATIVE); LEUKOCYTE ESTERASE, URINE AUTO NEGATIVE (NEGATIVE); NITRITE, URINE AUTO NEGATIVE (NEGATIVE); PROTEIN, URINE AUTO NEGATIVE (NEGATIVE); RBC, URINE AUTO 2 /HPF (0-3); SPECIFIC GRAVITY URINE AUTO 1.031 (1.002-1.035); SQUAMOUS EPITHELIAL CELL UR AU 1 /HPF (0-6); UROBILINOGEN, URINE AUTO 0.2 mg/dL (0.0-2.0); WBC, URINE AUTO 1 /HPF (0-3); YEAST LIKE CELL URINE AUTO MODERATE
[2025-02-11 01:17] LABS: T P ELECTROPHORESIS SO 6.1 g/dL (6.1-8.1)
[2025-02-12 11:37] LABS: PROTEIN CREATININE RATIO 214 mg/g creat (24-184); T PROTEIN CREATININE RATIO 0.214 (0.024-0.184); UPEP CREATININE 42 mg/dL (20-275); UPEP TOTAL PROTEIN 9 mg/dL (5-24)
== END ==
LOC: M LAB REF 10:54
PROVIDERS: ATTEND Internal Medicine Nephrology
DX: I10 Essential (primary) hypertension (principal)

== ENCOUNTER 2025-03-06 15:11 | Outpatient (CLI) | payer MEDICARE ==
[~2025-03-06] VITALS: Ht 160 cm; Wt 71.4 kg
[2025-03-06 15:25] VITALS: BP 154/70; O2SAT 96
[2025-03-06] MEDS: ZOLEDRONIC ACID 5 MG in IV 1 EA IV ONE (15:55)
[2025-03-06 17:00] VITALS: BP 142/60; O2SAT 96
== END 2025-03-06 16:55 | disposition home or self-care (01) ==
LOC: M INFU 15:11
PROVIDERS: ATTEND Internal Medicine
DX: M81.0 Age-related osteoporosis without current pathological fracture (principal); Z88.1 Allergy status to other antibiotic agents; Z91.040 Latex allergy status
CPT/HCPCS: 96365; J3489

== ENCOUNTER → 2025-04-23 | Outpatient (CLI) | payer MEDICARE ==
[2025-04-23 12:13] LABS: CALCIUM LEVEL 9.8 MG/DL (8.3-10.6); CARBON DIOXIDE LEVEL 27.0 MMOL/L (20-31); CHLORIDE LEVEL 107.0 MMOL/L (98-107); CREATININE FOR GFR 0.85 MG/DL (0.55-1.30); GLOMERULAR FILTRATION RATE 74.6 (>45); MAGNESIUM LEVEL 2.3 MG/DL (1.8-2.4); PHOSPHORUS LEVEL 2.8 MG/DL (2.4-5.1); POTASSIUM SERUM 4.7 MMOL/L (3.5-5.1); PTH INTACT 123.9 PG/ML (18.5-88.0); SODIUM LEVEL 139.0 MMOL/L (136-145); TOTAL 25(OH) VITAMIN D 37.6 NG/ML (20.0-100.0)
[2025-04-23 12:15] LABS: FREE T4 1.4 NG/DL (0.89-1.76)
== END ==
LOC: M LAB 10:57
PROVIDERS: ATTEND Nurse Practitioner Family
DX: E03.9 Hypothyroidism, unspecified (principal); E83.52 Hypercalcemia

== ENCOUNTER → 2025-05-16 | Outpatient (CLI) | payer MEDICAID, MEDICARE ==
[2025-05-16 16:20] LABS: BASO # 0.1 10^3/uL (0.0-0.2); BASO % 0.5 % (0.0-1.0); EOS # 0.3 10^3/uL (0.0-0.5); EOS % 3.7 % (0.0-3.0); LYMPH # 1.6 10^3/uL (1.5-5.0); LYMPH % 17.0 % (24.0-44.0); MONO # 0.4 10^3/uL (0.0-0.8); MONO % 4.4 % (2.0-8.0); NEUTROPHILS # 6.9 10^3/uL (1.5-8.5); NEUTROPHILS % 74.1 % (36.0-66.0); PLATELET COUNT, AUTOMATED 378 10^3/uL (150-450)
[2025-05-16 16:44] LABS: ALT/SGPT 18.0 U/L (7.0-40); AST/SGOT 17.0 U/L (<34); CALCIUM LEVEL 10.4 MG/DL (8.3-10.6); CARBON DIOXIDE LEVEL 23.0 MMOL/L (20-31); CHLORIDE LEVEL 112.0 MMOL/L (98-107); CREATININE FOR GFR 1.16 MG/DL (0.55-1.30); GLOMERULAR FILTRATION RATE 51.4 (>45); POTASSIUM SERUM 5.5 MMOL/L (3.5-5.1); SODIUM LEVEL 143.0 MMOL/L (136-145)
[2025-05-16 17:07] LABS: INR 0.89
== END ==
LOC: M LAB 15:33
PROVIDERS: ATTEND Internal Medicine
DX: Z01.818 Encounter for other preprocedural examination (principal)

== ENCOUNTER 2025-05-18 16:30 | Emergency (ER) | payer MEDICARE ==
[~2025-05-18] VITALS: Ht 160 cm; Wt 75.0 kg
[2025-05-18] MEDS: NS (Normal Saline) 0.9% 1,000 ML IV ONE (18:05)
[2025-05-18 18:34] LABS: BASO # 0.1 10^3/uL (0.0-0.2); BASO % 0.6 % (0.0-1.0); EOS # 0.3 10^3/uL (0.0-0.5); EOS % 3.7 % (0.0-3.0); LYMPH # 2.4 10^3/uL (1.5-5.0); LYMPH % 28.4 % (24.0-44.0); MONO # 0.5 10^3/uL (0.0-0.8); MONO % 6.2 % (2.0-8.0); NEUTROPHILS # 5.0 10^3/uL (1.5-8.5); NEUTROPHILS % 60.9 % (36.0-66.0); PLATELET COUNT, AUTOMATED 342 10^3/uL (150-450)
[2025-05-18 18:46] LABS: ALT/SGPT 30 U/L (7.0-40); AST/SGOT 24 U/L (<34); CALCIUM LEVEL 10.0 MG/DL (8.3-10.6); CARBON DIOXIDE LEVEL 22 MMOL/L (20-31); CHLORIDE LEVEL 111 MMOL/L (98-107); CREATININE FOR GFR 1.35 MG/DL (0.55-1.30); GLOMERULAR FILTRATION RATE 42.8 (>45); POTASSIUM SERUM 4.6 MMOL/L (3.5-5.1); SODIUM LEVEL 142 MMOL/L (136-145)
[2025-05-18 18:53] LABS: KETONE, URINE AUTO RFX NEGATIVE (NEGATIVE); MUCUS, URINE RFX SMALL (NEGATIVE); NITRITE, URINE AUTO RFX NEGATIVE (NEGATIVE); RBC, URINE AUTO RFX 1 /HPF (0-3); SQUAM EPITHELIAL CELL UR AURFX 2 /HPF (0-6); WBC, URINE AUTO RFX 6 /HPF (0-3)
[2025-05-18 18:56] LABS: LEUKOCYTE ESTERASE UR AUTO RFX 1+ (NEGATIVE)
[2025-05-18 20:03] VITALS: BP 140/65; TEMP 96.8; O2SAT 99
== END 2025-05-18 20:14 | disposition home or self-care (01) ==
LOC: M ED 16:30
DX: N17.9 Acute kidney failure, unspecified (principal); E11.9 Type 2 diabetes mellitus without complications; E78.5 Hyperlipidemia, unspecified; I10 Essential (primary) hypertension; F32.A Depression, unspecified; K76.0 Fatty (change of) liver, not elsewhere classified; F41.9 Anxiety disorder, unspecified; Z88.8 Allergy status to other drugs, medicaments and biological substances; Z91.040 Latex allergy status; Z79.1 Long term (current) use of non-steroidal anti-inflammatories (NSAID); Z79.899 Other long term (current) drug therapy

== ENCOUNTER → 2025-05-18 | Outpatient (CLI) | payer MEDICARE ==
[2025-05-18 15:53] LABS: CALCIUM LEVEL 10.1 MG/DL (8.3-10.6); CARBON DIOXIDE LEVEL 22.0 MMOL/L (20-31); CHLORIDE LEVEL 111.0 MMOL/L (98-107); CHOLESTEROL LEVEL 192.0 MG/DL (<200); CHOLESTEROL RISK RATIO 3.71 (<5); CREATININE FOR GFR 1.52 MG/DL (0.55-1.30); GLOMERULAR FILTRATION RATE 37.1 (>45); LDL CHOLESTEROL 88.3 MG/DL (<100); NON-HDL-C 140.3 MG/DL; POTASSIUM SERUM 5.0 MMOL/L (3.5-5.1); SODIUM LEVEL 141.0 MMOL/L (136-145); TRIGLYCERIDES LEVEL 260.0 MG/DL (<150)
[2025-05-18 16:57] LABS: ESTIMATED AVERAGE GLUCOSE 114.0 MG/DL (60-110)
== END ==
LOC: M LAB 14:42
PROVIDERS: ATTEND Internal Medicine
DX: Z01.818 Encounter for other preprocedural examination (principal); E87.5 Hyperkalemia

== ENCOUNTER → 2025-05-28 | Outpatient (CLI) | payer MEDICARE ==
[2025-05-28 12:22] LABS: CALCIUM LEVEL 9.9 MG/DL (8.3-10.6); CARBON DIOXIDE LEVEL 24.0 MMOL/L (20-31); CHLORIDE LEVEL 105.0 MMOL/L (98-107); CREATININE FOR GFR 0.98 MG/DL (0.55-1.30); GLOMERULAR FILTRATION RATE 62.9 (>45); POTASSIUM SERUM 4.6 MMOL/L (3.5-5.1); SODIUM LEVEL 139.0 MMOL/L (136-145)
== END ==
LOC: M LAB 10:26 → M RAD 10:26
PROVIDERS: ATTEND Internal Medicine
DX: R05.9 Cough, unspecified (principal); E87.5 Hyperkalemia